=== PATIENT | male | born 1955 | race Caucasian/White ===

== ENCOUNTER 2021-01-26 09:14 | Emergency (ER) | payer MEDICARE, OTHER, SELFPAY ==
--- NOTE | ~2021-01-26 | CT_ITS ---
EXAMINATION: CT brain wo con EXAM DATE: 01/26/2021 12:34 INDICATION: Seizure TECHNIQUE: Spiral CT of the head was performed without contrast. Axial, coronal and sagittal images were reviewed. The dose-length product (DLP) for this examination was 832.33 mGy-cm. The exposure w as tailored according to patient size, and iterative reconstruction (ASIR) was used as additional dos e reduction technique. There is no prior study for comparison. FINDINGS: Large right frontotemporal craniotomy. Large old right middle cerebral artery distribution region of encephalomalacia, prior infarction. Old right basal ganglia lacunar infarction. No obstruct niraj hydrocephalus, acute intracranial hemorrhage, brain mass. There is mild microangiopathy and cereb ral atrophy. Sphenoid, ethmoid sinuses, frontal sinuses and mastoid air cells are well aerated. IMPRESSION: Chronic findings. Reviewed, dictated and finalized at location B. IMPRESSION: Chronic findings.
[2021-01-26 09:12] VITALS: BP 126/98; PULSE 81; RESP 12; TEMP 36.4; O2SAT 94
[2021-01-26 09:17] VITALS: PULSE 78
--- NOTE | 2021-01-26 09:18 | ECG_ITS ---
Measurements Intervals [place] Rate: 74 P: 116 NE: 193 QRS: -19 QRSD: 101 T: 104 QT: 406 QTc: 451 Interpretive Statements ELECTRONIC ATRIAL PACEMAKER LOW QRS VOLTAGE IN PRECORDIAL LEADS ANTEROSEPTAL INFARCT, AGE INDETERMINATE BORDERLINE ST-T WAVE ABNORMALITY- LAT/HIGH LAT LEADS BASELINE ARTIFACT- II, III, AVF, V1, V3-V6 ABNORMAL ECG Electronically Signed On 01-26-2021 13:07:16 CDT by Walter Goodson D.O.
--- NOTE | 2021-01-26 09:24 | ED.GENADULT ---
HPI - General Adult General Chief complaint: Unspecified Stated complaint: Seizure Like Activity Time Seen by Provider: 01/26/21 09:19 Source: patient Mode of arrival: EMS Limitations: no limitations History of Present Illness HPI narrative: 65-year-old with a history of CVA, osteoarthritis, fibromyalgia, BPH was sent from a long-term for possible seizure-like activity. Patient was able to direct the whole history. Patient states that he was in the bed was unable to move his leg started having generalized spasm. Nursing staff at the long-term thought he was having a seizure and was later sent here for evaluation. Patient denied losing any consciousness. Denies any headache. No history of bladder or bowel incontinence. Onset (ago): hour(s) (1) Radiation: non-radiation Pain Consistency: now resolved Relieving factors: none Exacerbating factors: none Associated symptoms: denies other symptoms Related Data Allergies Allergy/AdvReac Type Severity Reaction Status Date / Time amoxicillin AdvReac Hives Verified 01/26/21 09:19 Review of Systems Review of Systems: All systems reviewed & are unremarkable except as noted in HPI and below Constitutional: Constitutional: Reports no additional constitutional complaints Eyes: Eyes: Reports no additional eye complaints ENT: Reports system reviewed and no additional complaints, except as documented Cardiovascular: Cardiovascular: Reports no additional cardiovascular complaints Respiratory: Respiratory: Reports no additional respiratory complaints Gastrointestinal: Gastrointestinal: Reports no additional gastrointestinal complaints Musculoskeletal: Musculoskeletal: Reports no additional musculoskeletal complaints Integumentary/Breasts: Skin/Breast: Reports system reviewed and no additional complaints, except as docu Neurologic: Reports system reviewed and no additional complaints, except as documented Exam Narrative: GENERAL: Well-appearing, well-nourished, and in no acute distress. HEAD: Normocephalic, atraumatic. EYES: PERRLA and EOMI. NECK: Supple. CHEST: Clear to auscultation. No respiratory distress. HEART: Regular rate and rhythm. No murmur heard. Normal peripheral pulses. ABDOMEN: Soft, nontender, nondistended, normal active bowel sounds. EXTREMITIES: Normal range of motion. No edema. SKIN: Warm, dry, no rash. NEURO: Alert and oriented x3. PSYCH: Normal mood and affect. Course Course Emergency Course: Patient was comfortably laying on the stretcher here in the ER for couple hours. He had no further episodes. I did discuss his lab work with him. Also discussed with Dr. Sanchez this time his muscle spasm that appeared to be like seizure activity. Vital Signs Vital signs: Vital Signs Temperature 36.4 C L 01/26/21 09:12 Pulse Rate 81 01/26/21 09:12 Respiratory Rate 12 01/26/21 09:12 Blood Pressure 126/98 H 01/26/21 09:12 Pulse Oximetry 94 01/26/21 09:12 Temperature 36.4 C L 01/26/21 09:12 Pulse Rate 78 01/26/21 09:17 Respiratory Rate 12 01/26/21 09:12 Blood Pressure 126/98 H 01/26/21 09:12 Pulse Oximetry 94 01/26/21 09:12 Medical Decision Making Vital Signs Vital Signs: Vital Signs Temperature 36.4 C L 01/26/21 09:12 Pulse Rate 81 01/26/21 09:12 Respiratory Rate 12 01/26/21 09:12 Blood Pressure 126/98 H 01/26/21 09:12 Pulse Oximetry 94 01/26/21 09:12 Temperature 36.4 C L 01/26/21 09:12 Pulse Rate 78 01/26/21 09:17 Respiratory Rate 12 01/26/21 09:12 Blood Pressure 126/98 H 01/26/21 09:12 Pulse Oximetry 94 01/26/21 09:12 Lab Data Result diagrams: 01/26/21 09:20 01/26/21 09:20 Labs: Lab Results 01/26/21 01/26/21 01/26/21 Range/Units 09:20 09:20 09:20 WBC 6.2 (4.5-10.0) K/mm3 RBC 4.01 L (4.6-6.20) M/mm3 Hgb 12.1 L (14.0-18.0) g/dL Hct 37.4 L (42.0-52.0) % MCV 93.3 (80-100) fl MCH 30.2 (26-34) pg MCHC 32.4 (
[2021-01-26 09:38] LABS: Basophils Percent Auto 0.6 % (0.2-1.2); Eosinophils Absolute Auto 0.3 K/mm3 (0-0.3); Eosinophils Percent Auto 4.3 % (0-4.4); Hematocrit 37.4 % (42.0-52.0); Hemoglobin 12.1 g/dL (14.0-18.0); Immature Granulocyte Absolute 0.02 K/mm3 (0.00-0.031); Immature Granulocyte Percent A 0.3 % (0-0.5); Lymphocytes Absolute Auto 1.83 K/mm3 (0.9-3.2); Lymphocytes Percent Auto 29.4 % (18.3-44.2); Mean Corpuscular HGB Conc 32.4 g/dl (32-36); Mean Corpuscular Hemoglobin 30.2 pg (26-34); Mean Corpuscular Volume 93.3 fl (80-100); Monocytes Absolute Auto 0.5 K/mm3 (0.1-0.6); Monocytes Percent Auto 7.6 % (2.6-8.5); Neutrophils Absolute Auto 3.6 K/mm3 (1.3-6.7); Neutrophils Percent Auto 57.8 % (45.5-73.1); Platelet Count Result 304 k/mm3 (150-375); Red Blood Count 4.01 M/mm3 (4.6-6.20); Red Cell Distribution Width 13.8 % (11.5-14.5); White Blood Count 6.2 K/mm3 (4.5-10.0)
[2021-01-26 09:46] LABS: Alanine Aminotransferase 35 U/L (4-50); Albumin Level 4.5 g/dL (3.5-5.1); Alkaline Phosphatase 64 U/L (38-126); Anion Gap 10 mmol/L (8-16); Aspartate Amino Transferase 35 U/L (17-59); Bilirubin,Total 0.8 mg/dL (0.2-1.3); Blood Urea Nitrogen 17 mg/dL (9-20); Calcium 9.8 mg/dL (8.4-10.2); Carbon Dioxide 29 mmol/L (22-30); Chloride 104 mmol/L (98-107); Estimated CRCL calculation 61 ml/min; Estimated Glomerular Filt Rate > 60; Glucose 110 mg/dL (65-110); Potassium 4.3 mmol/L (3.4-5.0); Sodium 143 mmol/L (137-145)
[2021-01-26 09:55] LABS: Phosphorus 4.4 mg/dL (2.5-4.5)
[2021-01-26 13:05] VITALS: BP 115/88; PULSE 62; RESP 18; O2SAT 98
--- NOTE | 2021-01-26 14:57 | PC.NURSE ---
[facility] Called at this time to give report for patient return, BALBIR Fang
[2021-01-26 15:06] VITALS: BP 108/58; PULSE 68; RESP 18; O2SAT 99
== END 2021-01-26 16:26 ==
PROVIDERS: Physician Assistant; Emergency Provider Family Medicine
DX: M62.838 Other muscle spasm (principal); Z95.0 Presence of cardiac pacemaker; R94.31 Abnormal electrocardiogram [ECG] [EKG]
CPT/HCPCS: 36415; 70450; 80053; 83735; 84100; 85025; 93005; 99284

== ENCOUNTER 2022-07-28 08:33 | Emergency (ER) | payer MEDICARE, OTHER, MEDICAID, SELFPAY ==
[2022-07-28] VITALS (13 sets, daily range): BP systolic 120–148; BP diastolic 81–104; PULSE 60–74; RESP 9–19; TEMP 36.9; O2SAT 94–97
--- NOTE | ~2022-07-28 | XR_ITS ---
EXAMINATION: XR chest 2V DATE: 07/28/2022 09:12 INDICATION: Left shoulder pain TECHNIQUE: AP and lateral views of the chest are obtained. COMPARISON: None available FINDINGS: There is a masslike opacity of the right hilum. There is elevation of the right hemidiaphra gm. No pleural effusion or pneumothorax. There is moderate thoracic spondylosis. A coronary artery st ent is noted. A changes of anterior fusion procedure are noted at the cervicothoracic junction. cardi ac pacemaker of the left chest wall ends with leads in expected locations. IMPRESSION: 1. Masslike opacity of the right hilum with elevation of the right hemidiaphragm which could reflect hilar malignancy. Further evaluation with CT of the chest is recommended. Reviewed, dictated and finalized at location A. IMPRESSION: 1. Masslike opacity of the right hilum with elevation of the right hemidiaphrag m which could reflect hilar malignancy. Further evaluation with CT of the chest is recommended.
--- NOTE | ~2022-07-28 | CT_ITS ---
EXAMINATION: CT diagnostic chest wo con DATE: 07/28/2022 12:19 INDICATION: Hilar mass TECHNIQUE: Computed tomography (CT) of the chest was performed without intravenous contrast. The dose -length product (DLP) was 253.01 mGy-cm. Automated exposure control and iterative reconstruction tech nique were employed. COMPARISON: None FINDINGS: Bronchiectasis and airspace opacities are present in the right lower lobe which account for the chest radiographic findings in question. No hilar mass is seen. There is mild emphysema. There a re scattered 2 to 3 mm nodules of the lungs with an upper lobe predominance. No pleural effusion or p neumothorax. There are circumferential wall thickening of the distal esophagus. The esophagus is patu lous. No pathologically enlarged thoracic lymph nodes are identified. The heart size is normal. Ther e is mild thoracic spondylosis. IMPRESSION: 1. Bronchiectasis and airspace opacities in the right lower lobe accounting for the radiographic find ing in question. Finding may reflect infection/inflammation however underlying malignancy could be ob scured. Follow-up CT in three months is recommended. 2. Scattered 2 to 3 mm nodules of the lungs, likely infectious or inflammatory. 3. Circumferential wall thickening of the distal esophagus which may reflect esophagitis. Reviewed, dictated and finalized at location A. IMPRESSION: 1. Bronchiectasis and airspace opacities in the right lower lobe accounting for the radiographic finding in question. Finding may reflect infection/inflammati on however underlying malignancy could be obscured. Follow-up CT in three month s is recommended. 2. Scattered 2 to 3 mm nodules of the lungs, likely infectious or inflammatory. 3. Circumferential wall thickening of the distal esophagus which may reflect es ophagitis.
--- NOTE | ~2022-07-28 | CT_ITS ---
EXAMINATION: CT abdomen pelvis w con INDICATION: Right-sided abdominal pain TECHNIQUE: Computed tomographic images of the abdomen and pelvis were obtained after the administrati on of 100 cc of Omnipaque 350 intravenous contrast. The dose-length product (DLP) was 744.47 mGy-cm. Automated exposure control and iterative reconstruction technique were employed. COMPARISON: None available FINDINGS: Bronchiectasis and airspace opacities are present in the right lower lobe. There are minima l airspace opacities of the left lower lobe. The heart size is normal. There is elevation of the righ t hemidiaphragm. Punctate calcifications in an otherwise normal spleen likely represent healed granul omatous disease. The liver is diffusely low in attenuation when compared with the spleen, consistent with hepatic steatosis. There is circumferential wall thickening of the distal esophagus. There is al so wall thickening of the stomach and proximal duodenum. A large volume of colonic stool is present. The gallbladder, pancreas, and adrenal glands are normal. Cysts of the kidneys measure up to 13 mm on the left. There is cortical scarring posteriorly in the left kidney. No pathologically enlarged abdo kris or pelvic lymph nodes are identified. There is no free intraperitoneal gas. There is a 3.1 cm f usiform aneurysm of the infrarenal abdominal aorta. IMPRESSION: 1. Wall thickening of the distal esophagus, stomach, and proximal duodenum which may reflect gastriti s/esophagitis. 2. Bronchiectasis and airspace opacities of the right lower lobe, possible infection/inflammation alt jermain underlying malignancy could be obscured. Follow-up CT in three months is recommended. Reviewed, dictated and finalized at location A. IMPRESSION: 1. Wall thickening of the distal esophagus, stomach, and proximal duodenum whic h may reflect gastritis/esophagitis. 2. Bronchiectasis and airspace opacities of the right lower lobe, possible infe ction/inflammation although underlying malignancy could be obscured. Follow-up CT in three months is recommended.
--- NOTE | 2022-07-28 08:37 | ECG_ITS ---
Measurements Intervals [place] Rate: 69 P: 216 SC: 233 QRS: -39 QRSD: 105 T: 123 QT: 402 QTc: 432 Interpretive Statements ELECTRONIC ATRIAL PACEMAKER LEFT AXIS DEVIATION ANTEROSEPTAL INFARCT, AGE INDETERMINATE ST-T WAVE ABNORMALITY IN HIGH LATERAL LEADS- CONSIDER ISCHEMIA BASELINE ARTIFACT- I, II, III, AVL, AVF ABNORMAL ECG COMPARED TO ECG 01/26/2021 09:19:15 LEFT-AXIS DEVIATION NOW PRESENT Electronically Signed On 07-28-2022 16:27:55 CDT by Walter Goodson D.O.
--- NOTE | 2022-07-28 08:53 | ED.CHESTPAIN ---
HPI - Chest Pain General Chief Complaint: Chest Pain Stated Complaint: CP Time Seen by Provider: 07/28/22 08:53 Source: patient and EMS Mode of arrival: EMS Limitations: no limitations History of Present Illness HPI narrative: 67 years old white male [facility] with [facility], vomiting started last night lasted for 1 hour associated with left chest pain and left shoulder pain. Patient came to the emergency room this morning because not feeling well. He denies any fever, chills, chest pain, shortness of breath, coughing or back pain. History of left hemiplegia, chronic left shoulder pain secondary to subluxation secondary to stroke. Patient on Ativan and hydrocodone which he received at 5 AM prior to arrival to the emergency room.. Related Data Allergies Allergy/AdvReac Type Severity Reaction Status Date / Time amoxicillin AdvReac Hives Verified 01/26/21 09:19 Review of Systems Review of Systems: All systems reviewed & are unremarkable except as noted in HPI and below Exam Narrative: General appearance: Well-developed, well-nourished Skin: Normal color Head: Normocephalic, nontraumatic Eyes: Clear conjunctiva ENT: Oropharynx normal, ears normal, nose normal Neck: Supple, nontender Chest and respiratory: Airway patent, no respiratory distress, no accessory muscle use Heart: Regular rate/rhythm Abdomen: Soft, nontender, no organomegaly, quiet bowel sounds Vascular: Normal peripheral pulses, normal capillary refill. 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 Was notified about the CAT scan findings and the possibility of pneumonia versus malignancy. Date: 07/28/22 Time: 13:36 Vital Signs Vital signs: Vital Signs Temperature 36.9 C 07/28/22 08:33 Pulse Rate 62 07/28/22 08:33 Respiratory Rate 18 07/28/22 08:33 Blood Pressure 141/104 H 07/28/22 08:33 Pulse Oximetry 97 07/28/22 08:33 Oxygen Delivery Room Air 07/28/22 08:33 Temperature 36.9 C 07/28/22 08:33 Pulse Rate 60 07/28/22 11:00 Respiratory Rate 15 07/28/22 11:00 Blood Pressure 141/84 H 07/28/22 11:00 Pulse Oximetry 95 07/28/22 11:00 Oxygen Delivery Room Air 07/28/22 08:33 MDM - Chest Pain MDM Narrative Medical decision making narrative: [facility] from [facility] complaining of left chest pain left shoulder pain last night after vomiting. Resolved in 1 hour. Currently patient is asymptomatic except chronic left shoulder pain on hydrocodone, chronic left lower extremity pain. Physical examination was significant for left hemiplegia otherwise within normal limit. Differential diagnoses include coronary artery disease, stress related symptoms, pancreatitis, esophagitis. Work-up include: Troponin, coag, EKG, chest x-ray, CBC, CMP, lipase, CT abdomen and pelvis with IV contrast. Work-up showed normal level of troponin less than 0.012 twice. Otherwise blood work-up showed no acute abnormalities. Chest x-ray showed masslike opacity of the right hilum which could reflect hilar malignancy. CT chest without contrast, CT scan of the abdomen and pelvis with IV contrast showed bronchiectasis and airspace opacity in the right lower lobe questionable infection/inflammation, malignancy could be obscured follow-up in [address] scan of the chest more other finding consistent with esophagitis/gastritis. Patient received lidocaine patch for the left hip area, aspirin, Levaquin 750 mg for possible pneumonia in the ED prior to dis
[2022-07-28] MEDS: ASPIRIN 81 MG CHEWABLE TABLET 324 MG PO (09:18)
[2022-07-28 09:26] LABS: Basophils Absolute Auto 0.1 K/mm3 (0.0-0.1); Basophils Percent Auto 0.8 % (0.2-1.2); Eosinophils Absolute Auto 0.5 K/mm3 (0-0.3); Hematocrit 38.3 % (42.0-52.0); Hemoglobin 12.6 g/dL (14.0-18.0); Immature Granulocyte Absolute 0.02 K/mm3 (0.00-0.031); Immature Granulocyte Percent A 0.2 % (0-0.5); Lymphocytes Absolute Auto 2.88 K/mm3 (0.9-3.2); Lymphocytes Percent Auto 28.1 % (18.3-44.2); Mean Corpuscular HGB Conc 32.9 g/dl (32-36); Mean Corpuscular Hemoglobin 31.1 pg (26-34); Mean Corpuscular Volume 94.6 fl (80-100); Mean Platelet Volume 10.2 fl (7.4-10.4); Monocytes Absolute Auto 0.8 K/mm3 (0.1-0.6); Monocytes Percent Auto 7.8 % (2.6-8.5); Neutrophils Percent Auto 58.1 % (45.5-73.1); Platelet Count Result 303 k/mm3 (150-375); Red Blood Count 4.05 M/mm3 (4.6-6.20); Red Cell Distribution Width 12.6 % (11.5-14.5); White Blood Count 10.2 K/mm3 (4.5-10.0)
[2022-07-28 09:39] LABS: Alanine Aminotransferase 23 U/L (6-50); Albumin Level 4.3 g/dL (3.5-5.1); Alkaline Phosphatase 73 U/L (38-126); Anion Gap 8 mmol/L (8-16); Aspartate Amino Transferase 29 U/L (17-59); Bilirubin,Total 0.9 mg/dL (0.2-1.3); Blood Urea Nitrogen 14 mg/dL (9-20); Calcium 9.2 mg/dL (8.4-10.2); Carbon Dioxide 29 mmol/L (22-30); Chloride 102 mmol/L (98-107); Estimated Glomerular Filt Rate > 60; Glucose 99 mg/dL (65-110); Lipase 24 U/L (23-300); Potassium 4.5 mmol/L (3.4-5.0); Sodium 139 mmol/L (137-145)
[2022-07-28 09:41] LABS: INR 1.7; Prothrombin Time 19.5 Seconds (11.1-14.7)
[2022-07-28 09:42] LABS: Partial Thromboplastin Time 36.2 SECONDS (22.3-36.8)
[2022-07-28 09:49] LABS: Troponin I < 0.012 ng/mL (0.000-0.034)
[2022-07-28 09:52] LABS: D Dimer 0.42 ug/mL (<0.48)
[2022-07-28] MEDS: LIDOCAINE 5% PATCH 1 PATCH (10:36)
[2022-07-28 12:21] LABS: Troponin I < 0.012 ng/mL (0.000-0.034)
[2022-07-28] MEDS: levoFLOXacin 750 MG TABLET PO (13:53)
--- NOTE | 2022-07-28 14:16 | PC.NURSE ---
[facility] called and report given to Latonya.
[2022-07-28] MEDS: MORPHINE SULFATE (*CRX) 4 MG/ML INJ IV PUSH (15:11)
[2022-07-28] MEDS: ONDANSETRON INJ 4 MG/2 ML VIAL IV PUSH (15:12)
== END 2022-07-28 15:40 ==
PROVIDERS: Emergency Provider Emergency Medicine
DX: K29.70 Gastritis, unspecified, without bleeding (principal); J47.9 Bronchiectasis, uncomplicated; R91.8 Other nonspecific abnormal finding of lung field
CPT/HCPCS: 36415; 71046; 71250; 74177; 80053; 83690; 84484; 85025; 85380; 85610; 85730; 93005; 96374; 96375; 99284; A9270; J2270; J2405; Q9967

== ENCOUNTER 2023-06-11 19:38 | Inpatient (IN) | payer MEDICARE, MEDICAID, SELFPAY ==
--- NOTE | ~2023-06-11 | CT_ITS ---
EXAMINATION: CT brain wo con INDICATION: Altered mental status COMPARISON: 01/26/2021 TECHNIQUE: Standard unenhanced head CT. The dose-length product (DLP) was 1210.67 mGy-cm. The mA was adjusted according to patient size. Iterative reconstruction technique was employed. FINDINGS: No acute intraparenchymal hemorrhage. No evidence of mass lesion. No evidence of acute infa rction. There are areas of chronic encephalomalacia in the right middle cerebral artery distribution. There is an old lacunar infarct of the right basal ganglia. There is mild periventricular and subcor tical hypodensity probably related to small vessel ischemic disease. There is mild prominence of the sulci and ventricles related to cerebral atrophy. Intracranial calcified cerebral atherosclerosis is noted. No extra-axial collections. No mass effect or midline shift. There is a right frontotemporal c raniotomy defect. The orbits and soft tissues are unremarkable. The visualized sinuses and mastoid ai r cells are well aerated. IMPRESSION: 1. Areas of prior infarction without acute intracranial abnormality. 2. Age related findings. Reviewed, dictated and finalized at location B. NA CARRIER
--- NOTE | ~2023-06-11 | XR_ITS ---
MODIFIED ESOPHAGRAM HISTORY: Aspiration pneumonia. Stroke. TECHNIQUE: Modified barium esophagram was performed on 06/12/2023. Dr. Mccray administered fluoroscopy an d performed the exam with speech pathologist. Patient was seated for lateral fluoroscopic imaging fo r ingestion of thin liquids, pudding, solids and quantified amounts, followed by thin liquids in unco ntrolled amounts. This was recorded on tape. A single fluoroscopic spot image was also recorded. The DAP for this procedure was 0.853 Gycm2. The amount of fluoroscopy time used during this procedure was 2.1 minutes. FINDINGS: Oral stage: Adequate function. Pharyngeal stage: There is reduced laryngeal elevation and adduction. Reduced tongue base retraction and pharyngeal squeeze. There is both vallecular and piriform sinus residue. There was laryngeal pene tration and aspiration with thin liquids and pudding consistencies. Cervical/esophageal stage: Adequate function. C5-C7 anterior spinal fusion with plate and screw fixation. IMPRESSION: Pharyngeal dysphagia with laryngeal penetration and aspiration with thin liquids and pudd ing consistencies. Please correlate with speech pathologist findings and specific feeding recommenda tions. Reviewed, dictated and finalized at location A. MANAGER IMPRESSION: Pharyngeal dysphagia with laryngeal penetration and aspiration with thin liquids and pudding consistencies. Please correlate with speech patholog ist findings and specific feeding recommendations.
--- NOTE | ~2023-06-11 | XR_ITS ---
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 RESULT: Lines, tubes, and devices: ACDF hardware. Left chest pacer with intact leads. Coronary stent/stents. Lungs and pleura: Right hemidiaphragm elevation. Subsegmental bilateral dependent airspace disease. Cardiomediastinal silhouette: Stable. Other: No acute osseous or upper abdominal finding. IMPRESSION: Subsegmental bibasilar atelectasis or pneumonia. Reviewed, dictated and finalized at location K. R ASSEMBLER
[2023-06-11 19:37] VITALS: BP 125/79; PULSE 84; RESP 21; TEMP 36.6; O2SAT 95
--- NOTE | 2023-06-11 19:46 | ECG_ITS ---
Measurements Intervals [place] Rate: 80 P: 107 RI: 228 QRS: -61 QRSD: 163 T: 73 QT: 432 QTc: 498 Interpretive Statements ELECTRONIC ATRIAL PACEMAKER RIGHT BUNDLE BRANCH BLOCK [120+ ms QRS DURATION, UPRIGHT V1, 40+ ms S IN I/aVL/V4/V5/V6] LEFT ANTERIOR FASCICULAR BLOCK [QRS AXIS <= -45, QR IN I, RS IN II] ANTEROSEPTAL MYOCARDIAL INFARCTION , OF INDETERMINATE AGE [40+ ms Q WAVE IN V1-V4] COMPARED TO ECG 07/28/2022 08:36:43 RIGHT BUNDLE-BRANCH BLOCK NOW PRESENT Electronically Signed On 06-12-2023 15:06:14 CONVEYOR WEIGHER OPERATOR by Lola Burgos M.D.
[2023-06-11 19:52] VITALS: BP 116/84; PULSE 66; RESP 15; O2SAT 95
[2023-06-11 20:02] LABS: Basophils Absolute Auto 0.1 K/mm3 (0.0-0.1); Basophils Percent Auto 0.6 % (0.2-1.2); Eosinophils Absolute Auto 0.2 K/mm3 (0-0.3); Eosinophils Percent Auto 1.7 % (0-4.4); Hematocrit 36.3 % (42.0-52.0); Hemoglobin 11.5 g/dL (14.0-18.0); Immature Granulocyte Absolute 0.02 K/mm3 (0.00-0.031); Immature Granulocyte Percent A 0.2 % (0-0.5); Lymphocytes Absolute Auto 1.64 K/mm3 (0.9-3.2); Lymphocytes Percent Auto 18.5 % (18.3-44.2); Mean Corpuscular HGB Conc 31.7 g/dl (32-36); Mean Corpuscular Hemoglobin 30.1 pg (26-34); Mean Platelet Volume 10.2 fl (7.4-10.4); Monocytes Absolute Auto 0.4 K/mm3 (0.1-0.6); Monocytes Percent Auto 4.8 % (2.6-8.5); Neutrophils Absolute Auto 6.6 K/mm3 (1.3-6.7); Neutrophils Percent Auto 74.2 % (45.5-73.1); Platelet Count Result 250 k/mm3 (150-375); Red Blood Count 3.82 M/mm3 (4.6-6.20); Red Cell Distribution Width 12.5 % (11.5-14.5); White Blood Count 8.9 K/mm3 (4.5-10.0)
[2023-06-11 20:13] LABS: Alanine Aminotransferase 17 U/L (6-50); Alkaline Phosphatase 70 U/L (38-126); Anion Gap 6 mmol/L (8-16); Aspartate Amino Transferase 35 U/L (17-59); Bilirubin,Total 0.9 mg/dL (0.2-1.3); Blood Urea Nitrogen 21 mg/dL (9-20); Calcium 9.1 mg/dL (8.4-10.2); Carbon Dioxide 27 mmol/L (22-30); Chloride 107 mmol/L (98-107); Estimated CRCL calculation 59 ml/min; Estimated Glomerular Filt Rate > 60; Glucose 125 mg/dL (65-110); Lactic Acid Reflex 1.5 mmol/L (0.7-2.0); Potassium 4.2 mmol/L (3.4-5.0); Sodium 140 mmol/L (137-145)
[2023-06-11 20:16] LABS: INR 1.2; Prothrombin Time 15.5 Seconds (11.1-14.7)
[2023-06-11 20:17] LABS: Partial Thromboplastin Time 38.2 SECONDS (22.3-36.8)
[2023-06-11 20:25] VITALS: O2SAT 95
[2023-06-11 20:42] LABS: Influenza A QL RT-PCR Negative (Negative); Influenza B QL RT-PCR Negative (Negative); RSV RNA, RT-PCR Negative (Negative); SARS-CoV-2 RNA PCR Negative (Negative)
[2023-06-11 21:36] VITALS: PULSE 78
[2023-06-11 22:52] VITALS: BP 111/70; PULSE 63; RESP 17; O2SAT 95
--- NOTE | 2023-06-11 23:22 | ED.GENADULT ---
HPI - General Adult General Chief complaint: Shortness of Breath/Dyspnea Stated complaint: aloc, resp distress Time Seen by Provider: 06/11/23 21:28 History of Present Illness HPI narrative: patient is 68-year-old gentleman who presents emergency department with chief complaint of cough and abnormal chest x-ray the patient is from a local nursing facility and is normally alert oriented x4 the patient has been very slow to respond and has been less oriented than normal. Patient does have prior history of stroke and has had issues with aspiration pneumonia in the past. The patient reports that he has had a cough and has felt short of breath. The patient had an outpatient x-ray done that was concerning for pneumonia. Related Data Allergies Allergy/AdvReac Type Severity Reaction Status Date / Time amoxicillin AdvReac Hives Verified 01/26/21 09:19 Review of Systems Review of Systems: A 10 system review of systems was completed on the patient and is negative except for what is stated in the HPI. Nursing and ancillary documentation was reviewed. Exam Narrative: GENERAL: Well-appearing, well-nourished, and in no acute distress. HEAD: Normocephalic, atraumatic. EYES: PERRLA and EOMI. ENT: Nares clear, no rhinorrhea or epistaxis. Mucous membranes dry NECK: Supple. CHEST: Clear to auscultation. No respiratory distress. HEART: Regular rate and rhythm. No murmur heard. Normal peripheral pulses. ABDOMEN: Soft, nontender, nondistended, normal active bowel sounds. EXTREMITIES: Normal range of motion. No edema. SKIN: Warm, dry, no rash. NEURO: No focal deficits. Alert and oriented x2. slow to respond PSYCH: Normal mood and affect. Course Vital Signs Vital signs: Vital Signs Temperature 36.6 C 06/11/23 19:37 Pulse Rate 84 06/11/23 19:37 Respiratory Rate 21 H 06/11/23 19:37 Blood Pressure 125/79 06/11/23 19:37 Pulse Oximetry 95 06/11/23 19:37 Oxygen Delivery Room Air 06/11/23 19:37 Temperature 36.6 C 06/11/23 19:37 Pulse Rate 63 06/11/23 22:52 Respiratory Rate 17 06/11/23 22:52 Blood Pressure 111/70 06/11/23 22:52 Pulse Oximetry 95 06/11/23 22:52 Oxygen Delivery Room Air 06/11/23 20:25 Medical Decision Making MDM Narrative Medical decision making narrative: differential diagnosis includes aspiration pneumonia, community-acquired pneumonia, viral syndrome, COVID flu RSV laboratory studies were obtained on the patient showed normal white blood cell count 8.9 electrolytes were within normal limits lactic acid is 1.5 COVID flu and RSV were negative chest x-ray shows subsegmental bibasilar atelectasis or pneumonia due to the patient being at a skilled facility and also patient has had prior history of aspiration pneumonia patient was covered with cefepime vancomycin and azithromycin was added this was in discussion with the hospitalist on-call patient was accepted to the hospitalist service. Vital Signs Vital Signs: Vital Signs Temperature 36.6 C 06/11/23 19:37 Pulse Rate 84 06/11/23 19:37 Respiratory Rate 21 H 06/11/23 19:37 Blood Pressure 125/79 06/11/23 19:37 Pulse Oximetry 95 06/11/23 19:37 Oxygen Delivery Room Air 06/11/23 19:37 Temperature 36.6 C 06/11/23 19:37 Pulse Rate 63 06/11/23 22:52 Respiratory Rate 17 06/11/23 22:52 Blood Pressure 111/70 06/11/23 22:52 Pulse Oximetry 95 06/11/23 22:52 Oxygen Delivery Room Air 06/11/23 20:25 Lab Data 06/11/23 19:49 06/11/23 19:49 Labs: Lab Results 06/11/23 06/11/23 Range/Units 19:49 19:52 WBC 8.9 (4.5-10.0) K/mm3 RBC 3.82 L (4.6-6.20) M/mm3 Hgb 11.5 L (14.0-18.0) g/dL Hct 36.3 L (42.0-52.0) % MCV 95.0 (80-100) fl MCH 30.1 (26-34) pg MCHC 31.7 L (32-36) g/dl RDW 12.5 (11.5-14.5) % Plt Count 250 (150-375) k/mm3 MPV 10.2 (7.4-10.4) fl Immature Gran % (Auto) 0.2 (0-0.5) % Neut % (
[2023-06-12] VITALS (17 sets, daily range): BP systolic 106–142; BP diastolic 57–86; PULSE 59–71; RESP 16–18; TEMP 36.4–36.8; O2SAT 91–98; BMI 17.2
[2023-06-12] MEDS: ACETAMINOPHEN 325 MG TABLET 650 MG PO (00:13)
[2023-06-12] MEDS: CEFEPIME 2 GM/NS 50 ML 2 GM/50 ML BAG IVPB ×2 (00:14→09:43)
--- NOTE | 2023-06-12 00:51 | ADMGEN ---
This patient, Wilmar De Souza, was admitted to 2 Medical Room 257-01. Patient/family oriented to hospital policies and general routines including ID bracelet, bed and alarms, visiting hours, pain management, procedures, bathroom and other care routines, personal items, smoking policy, room service/diet, and visiting hours. Information on how to activate the Rapid Response Team has been discussed. Patient/Family are encouraged to report perceived risks to care and to ask questions if they do not understand what they are told or what they should do.
[2023-06-12] MEDS: VANCOMYCIN 1,500 MG/NS 500 ML 1,500 MG/500 ML BAG 250 MG IVPB (01:04)
[2023-06-12 01:27] LABS: MRSA (PCR) NOT DETECTED (NOT DETECTE)
[2023-06-12] MEDS: IPRATROPIUM 0.5 MG/ALBUTEROL SULFATE 2.5 MG AMPUL.NEB 3 ML INHALATION ×4 (02:35→20:14)
[2023-06-12] MEDS: SODIUM CHLORIDE 0.9% IV 1,000 ML 125 ML IV CONT ×2 (05:22→18:09)
[2023-06-12] MEDS: AZITHROMYCIN 500 MG/NS 250 ML 500 MG/250 ML BAG 250 MG IVPB (05:23)
[2023-06-12 05:40] LABS: Basophils Absolute Auto 0.1 K/mm3 (0.0-0.1); Basophils Percent Auto 0.6 % (0.2-1.2); Eosinophils Absolute Auto 0.3 K/mm3 (0-0.3); Hematocrit 33.1 % (42.0-52.0); Hemoglobin 10.6 g/dL (14.0-18.0); Immature Granulocyte Absolute 0.03 K/mm3 (0.00-0.031); Immature Granulocyte Percent A 0.3 % (0-0.5); Lymphocytes Absolute Auto 2.05 K/mm3 (0.9-3.2); Lymphocytes Percent Auto 23.6 % (18.3-44.2); Mean Corpuscular Hemoglobin 30.5 pg (26-34); Mean Corpuscular Volume 95.4 fl (80-100); Mean Platelet Volume 10.2 fl (7.4-10.4); Monocytes Absolute Auto 0.5 K/mm3 (0.1-0.6); Monocytes Percent Auto 6.2 % (2.6-8.5); Neutrophils Absolute Auto 5.8 K/mm3 (1.3-6.7); Neutrophils Percent Auto 66.3 % (45.5-73.1); Platelet Count Result 230 k/mm3 (150-375); Red Blood Count 3.47 M/mm3 (4.6-6.20); Red Cell Distribution Width 12.4 % (11.5-14.5); White Blood Count 8.7 K/mm3 (4.5-10.0)
[2023-06-12 05:53] LABS: Anion Gap 2 mmol/L (8-16); Blood Urea Nitrogen 19 mg/dL (9-20); Carbon Dioxide 29 mmol/L (22-30); Chloride 109 mmol/L (98-107); Estimated CRCL calculation 61 ml/min; Estimated Glomerular Filt Rate > 60; Glucose 104 mg/dL (65-110); Potassium 4.1 mmol/L (3.4-5.0); Sodium 140 mmol/L (137-145)
[2023-06-12] MEDS: busPIRone HCL 2.5 MG TABLET PO (09:03)
[2023-06-12] MEDS: levETIRAcetam 500 MG TABLET PO (09:04)
[2023-06-12] MEDS: METOPROLOL SUCCINATE EXT REL 25 MG TABCR PO (09:04)
[2023-06-12] MEDS: MULTIVITAMINS THERAPEUTIC TAB (*BKC) 1 TABLET PO (09:05)
[2023-06-12] MEDS: PANTOPRAZOLE SOD SESQUIHYDRATE 20 MG TAB PO (09:06)
[2023-06-12] MEDS: SERTRALINE HCL 25 MG TABLET PO (09:06)
[2023-06-12] MEDS: guaiFENesin 12 HR 600 MG TABCR PO (09:07)
[2023-06-12] MEDS: DULoxetine HCL 60 MG CAPSULE.DR PO (09:07)
[2023-06-12] MEDS: lamoTRIgine 100 MG TABLET PO (09:07)
[2023-06-12] MEDS: oxyCODONE HCL (*CRX) 5 MG TAB IR PO ×2 (09:07→22:28)
[2023-06-12] MEDS: busPIRone HCL 5 MG TABLET PO (09:07)
[2023-06-12] MEDS: GABAPENTIN 300 MG CAPSULE PO (09:08)
[2023-06-12] MEDS: LIDOCAINE 5% PATCH 1 PATCH TOPICAL (09:08)
[2023-06-12] MEDS: TRIAMCINOLONE ACET 0.1% CREAM 15 GM TUBE 1 APPLIC TOPICAL ×2 (10:49→18:01)
[2023-06-12] MEDS: HYDROCORTISONE 1% 30 GM CREAM 1 APPLIC TOPICAL ×2 (10:49→18:00)
[2023-06-12] MEDS: DICLOFENAC SODIUM 1% 100 GM GEL (*BKC) 1 APPLIC TOPICAL ×2 (10:53→18:00)
[2023-06-12 11:06] LABS: Appearance Urine Clear (Clear); Bacteria Urine None Seen /hpf; Bilirubin Urine Negative (Negative); Blood Urine 1+ (Negative); Color Urine Yellow (Yellow); Glucose Urine UA Negative (Negative); Ketones Urine Negative (Negative); Leukocyte Esterase Ur Negative LEU/UL (Negative); Need Manual Microscopic Reviewed; Nitrate Urine Negative (Negative); Protein Urine Negative (Negative); RBC Urine 21-50 /hpf (0-2); Squamous Epithelial Cell Urine None seen /hpf (Few); Urobilinogen Urine 0.2 mg/dL (<2.0); WBC Urine 0-5 /hpf
[2023-06-12 11:07] LABS: Add Urine Microscopic? YES
--- NOTE | 2023-06-12 12:02 | PCSTNOTE ---
Please refer to the Modified Barium Swallow Evaluation in the EMR. Pt was seen for an MBS versus bedside swallow due to pt's history of CVA and aspiration pneumonia. The pt was seated for a lateral view and presented with 5ml thin liquid via a spoon & tsp amounts of pudding, also via a spoon. The oral stages were essentially within normal limits; the pt did abnormally hold the pudding bolus requiring verbal cues to swallow upon which no oral leakage or pocketing was exhibited;? Pharyngeal stage symptoms:? - reduced laryngeal elevation as evidenced by laryngeal penetration during the swallow of thin liquids and pyriform sinus residue (max) with pudding;? - reduced tongue base retraction/pressure as evidenced by vallecular residue but that was considered mild;? - reduced laryngeal closure/adduction as evidenced by aspiration during the swallow of thin liquids. Laryngeal penetration and aspiration also occurred after the swallow of pudding as residual from the pyriform sinuses and valleculae spilled into the laryngeal vestibule/airway. Pt did not make any effort to cough/eject contents.? The pt did not consistently follow commands which is why study modifications were not attempted (follow thru would be doubtful & potentially risky for aspiration). Impression: severe dysphagia Recommendation: NPO; trial of dysphagia therapy can be attempted but it is doubtful therapy will cause an immediate improvement in order to begin oral intake during this acute admission. It is also questionable if pt will adequately participate and effectively perform exercises.? [ End ]
[2023-06-12 12:14] LABS: MRSA (PCR) NOT DETECTED (NOT DETECTE)
--- NOTE | 2023-06-12 16:21 | PM.IMHP ---
H&P: HPI History of Present Illness Date/Time: 06/12/23 16:21 Chief Complaint: AMS/SOB Patient was a 68-year-old male who presented to the emergency department via EMS from SNF. Per ED notes patient is normally alert and oriented x4 however local shelter stated patient had become altered mental with complaints cough. Patient does have a past medical history of CVA with left-sided deficits dysphagia. SNF also reported previous history of aspiration pneumonia. Patient also has past medical history of seizures, hypertension, constipation, and anxiety. Initial laboratory findings were unremarkable WBC within normal limits however chest x-ray did show atelectasis versus pneumonia. Patient was admitted to medical-surgical unit for further evaluation and treatment of aspiration pneumonia remain NPO and underwent. modified barium swallow. Upon assessment patient was alert and oriented and responding to questions appropriately for did have moments of intermittent confusion and short-term memory. Review of Systems Review of Systems: All systems reviewed & are unremarkable except as noted in HPI and below PMFSH Past Medical History Medical History (Updated 06/12/23 @ 16:29 by Nasreen Schneider APRN) CVA (cerebral vascular accident) Social History Social History Smoking packs per day: 1 Smoking cigarettes per day: 20.0 Years smoked: 30 Smoking pack-years: 30.00 Smoking status: Former smoker Tobacco type: cigarettes Second hand tobacco smoke exposure: Yes Alcohol intake: former Substance use: never Substance use type: does not use Spiritual care concerns: No Meds Home Medications and Allergies Home Medications Medication Instructions Recorded Confirmed Type Adults Multivitamin 1 tablet PO DAILY 06/12/23 06/12/23 History Mucinex 600 mg PO BID 06/12/23 06/12/23 History acetaminophen 500 mg PO QID PRN Pain 06/12/23 06/12/23 History aripiprazole 10 mg tablet 10 mg PO HS 06/12/23 06/12/23 History atorvastatin 80 mg tablet 80 mg PO HS 06/12/23 06/12/23 History buspirone 7.5 mg tablet 7.5 mg PO TID 06/12/23 06/12/23 History diclofenac sodium 1 % topical gel 1 ea topical BID PRN Pain 06/12/23 06/12/23 History (Voltaren Arthritis Pain) docusate sodium 100 mg capsule 100 mg PO BID 06/12/23 06/12/23 History (Colace) duloxetine 60 mg capsule,delayed 60 mg PO DAILY 06/12/23 06/12/23 History release gabapentin 300 mg capsule 300 mg PO TID 06/12/23 06/12/23 History hydrocortisone 1 % topical cream 1 applic topical BID 06/12/23 06/12/23 History lamotrigine 100 mg tablet 100 mg PO DAILY 06/12/23 06/12/23 History (Lamictal) levetiracetam 500 mg tablet 500 mg PO BID 06/12/23 06/12/23 History (Keppra) lidocaine 5 % topical patch 1 patch topical DAILY 06/12/23 06/12/23 History loperamide 2 mg tablet 2 mg PO Q4H PRN diarhea 06/12/23 06/12/23 History lorazepam 0.5 mg tablet 0.5 mg PO TID 06/12/23 06/12/23 History metoprolol succinate 25 mg PO DAILY 06/12/23 06/12/23 History ondansetron HCl 4 mg tablet 4 mg PO Q8H PRN n/v 06/12/23 06/12/23 History oxycodone 5 mg tablet 5 mg PO Q6H 06/12/23 06/12/23 History pantoprazole 40 mg tablet,delayed 20 mg PO QAM 06/12/23 06/12/23 History release (Protonix) polyethylene glycol 3350 1 caplet PO DAILY 06/12/23 06/12/23 History rivaroxaban 20 mg tablet (Xarelto) 20 mg PO QPM 06/12/23 06/12/23 History senna 1 tablet PO BID PRN Constipation 06/12/23 06/12/23 History sertraline 1 tablet PO DAILY 06/12/23 06/12/23 History simethicone 1 cap PO TID PRN gas 06/12/23 06/12/23 History tamsulosin 0.4 mg capsule 0.4 mg PO HS 06/12/23 06/12/23 History trazodone 50 mg tablet 50 mg PO HS 06/12/23 06/12/23 History triamcinolone acetonide 0.1 % 1 applic topical BID 06/12/23 06/12/23 History topical cream Allergies Allergy/AdvReac Type Severity Reaction Status Date / Time amoxicillin AdvReac Hives Verified
[2023-06-12] MEDS: levETIRAcetam 500MG/NACL 100ML 500 MG/100 ML BAG 400 MG IVPB (20:34)
[2023-06-12] MEDS: cefTRIAXone 2 GM/NS 100 ML 2 GM/100 ML BAG IVPB (20:34)
[2023-06-12] MEDS: OLANZapine DISPERTAB 5 MG PO ×2 (21:20→22:52)
[2023-06-12] MEDS: diphenhydrAMINE HCl INJ 50 MG/ML VIAL 25 MG IV PUSH (23:45)
[2023-06-13] VITALS (16 sets, daily range): BP systolic 116–133; BP diastolic 76–85; PULSE 59–70; RESP 16–23; TEMP 36.4–37.4; O2SAT 94–99
--- NOTE | 2023-06-13 02:21 | PCRCNOTE ---
0200 tx not given due to pt sleeping. Pt had been irritable throughout the evening and finally fell asleep. RT and nurse discussed this together. Pt will receive his next tx at 0800.
[2023-06-13] MEDS: SODIUM CHLORIDE 0.9% IV 1,000 ML 125 ML IV CONT ×2 (03:49→19:22)
[2023-06-13] MEDS: AZITHROMYCIN 500 MG/NS 250 ML 500 MG/250 ML BAG 250 MG IVPB (04:03)
[2023-06-13 06:21] LABS: Hematocrit 30.3 % (42.0-52.0); Hemoglobin 9.8 g/dL (14.0-18.0); Mean Corpuscular HGB Conc 32.3 g/dl (32-36); Mean Corpuscular Hemoglobin 29.9 pg (26-34); Mean Corpuscular Volume 92.4 fl (80-100); Mean Platelet Volume 10.6 fl (7.4-10.4); Platelet Count Result 231 k/mm3 (150-375); Red Blood Count 3.28 M/mm3 (4.6-6.20); Red Cell Distribution Width 12.4 % (11.5-14.5); White Blood Count 7.4 K/mm3 (4.5-10.0)
[2023-06-13 06:37] LABS: Alanine Aminotransferase 12 U/L (6-50); Albumin Level 3.2 g/dL (3.5-5.1); Alkaline Phosphatase 61 U/L (38-126); Anion Gap 7 mmol/L (8-16); Aspartate Amino Transferase 30 U/L (17-59); Bilirubin,Total 0.7 mg/dL (0.2-1.3); Blood Urea Nitrogen 12 mg/dL (9-20); Calcium 8.6 mg/dL (8.4-10.2); Carbon Dioxide 23 mmol/L (22-30); Chloride 110 mmol/L (98-107); Estimated CRCL calculation 69 ml/min; Estimated Glomerular Filt Rate > 60; Glucose 74 mg/dL (65-110); Potassium 3.3 mmol/L (3.4-5.0); Sodium 140 mmol/L (137-145)
[2023-06-13] MEDS: IPRATROPIUM 0.5 MG/ALBUTEROL SULFATE 2.5 MG AMPUL.NEB 3 ML INHALATION ×3 (08:17→20:42)
[2023-06-13] MEDS: POTASSIUM CHLORIDE INJ 40 MEQ in SODIUM CHLORIDE 0.9% IV 500 ML 130 MEQ IVPB (08:41)
[2023-06-13] MEDS: levETIRAcetam 500MG/NACL 100ML 500 MG/100 ML BAG 400 MG IVPB ×2 (08:57→21:02)
--- NOTE | 2023-06-13 10:53 | PM.IMPN ---
Progress Note: A&P Assessment and Plan (1) Pneumonia: Code(s): J18.9 - Pneumonia, unspecified organism Status: Acute (2) Dysphagia: Code(s): R13.10 - Dysphagia, unspecified Status: Acute (3) Dementia: Code(s): F03.90 - Unspecified dementia, unspecified severity, without behavioral disturbance, psychotic disturbance, mood disturbance, and anxiety Status: Acute Plan Aspiration PNA -WBC WNL -de-escalated ABX therapy to ceftriaxone MRSA nares negative -Previous HX CVA/dysphagia -NPO Modified barium failed silent aspirating -GI consulted for peg tube placement -Peg tube placement 06/13 -Continue with ST inpatient and at SNF -CBC/CMP daily Dysphagia -Failed barium swallow -GI consulted for Peg tube placement 06/13 -NPO CVA HX -LT sided deficit -PT/OT pending to return to SNF Seizures -Reusmed Keppra IV until pef tube placed Dementia -resumed medications per tube once placed constipation -Resumed home medications Code status: Full code per patient DVT prophylaxis: Xarelto Stress ulcer prophylaxis: Protonix 40 daily PT/OT notes: PT/OT pending Disposition: Will return to SNF after peg tube placement and tolerating feedings -Patient's previous records reviewed on admission -ER notes reviewed in detail on admission -discussed all findings and current treatment plan with patient/Family/POA -Consultations reviewed for recommendations -Patient's disposition for safe discharge discussed with telephonic nurse case manager Dictation performed by [employer] direct speech recognition software, therefore finance manager variants and typographical errors may occur. Time Spent With Patient Time with patient: 15 - 25 minutes Subjective Date/time seen: 06/13/23 10:53 Interval history: Chief Complaint: AMS/SOB Patient was a 68-year-old male who presented to the emergency department via EMS from [facility].? Per ED notes patient is normally alert and oriented x4 however local jail stated patient had become altered mental with complaints cough.? Patient does have a past medical history of CVA with left-sided deficits dysphagia.? SNF also reported previous history of aspiration pneumonia.? Patient also has past medical history of seizures, hypertension, constipation, and anxiety.? Initial laboratory findings were unremarkable WBC within normal limits however chest x-ray did show atelectasis versus pneumonia.? Patient was admitted to medical-surgical unit for further evaluation and treatment of aspiration pneumonia remain NPO and underwent.? modified barium swallow.? Upon assessment patient was alert and oriented and responding to questions appropriately for did have moments of intermittent confusion and short-term memory. 06/13: Patient scheduled for peg tube placement. Otherwise no other acute distress, WBC WNL will de-escalate IV ABX. Patient to return to SNF once tolerating tube feedings will need continued ST at discharge. Review of Systems Review of Systems: All systems reviewed & are unremarkable except as noted in HPI and below Exam Narrative: Physical Exam: - GENERAL: Alert and oriented x 3. Intermittent confusion and memory loss, cachectic - EYES: EOMI. No scleral icterus. PERRLA. - HENT: Moist mucous membranes. No cervical lymphadenopathy. - LUNGS: Clear to auscultation bilaterally. No accessory muscle use. - CARDIOVASCULAR: Regular rate and rhythm. No murmur. No JVD. S1-S2 - ABDOMEN: Soft, non-tender and non-distended. No palpable masses. - EXTREMITIES: No edema. Non-tender -SKIN: No rashes or lesions. Skin warm, dry. - NEUROLOGIC: LT side deficit. CN II-XII grossly intact - PSYCHIATRIC: Anxious. Poor judgement and insight. No visual or auditory hallucinations. No suicidal or homicidal ideation. Objective Data Vital Signs Vital Signs: Vital Signs - 24 hr 06/12/23 11:20 06/12/23 13:20 06/12/23 13:29 Temperature Pulse Rate 62 60 Respiratory
--- NOTE | 2023-06-13 11:55 | PC.NURSE ---
to GI lab for PEG tube placement via stretcher
[2023-06-13] MEDS: LACTATED RINGERS 1,000 ML 150 ML IV CONT (12:28)
--- NOTE | 2023-06-13 12:31 | WPDANESEPPF ---
Anes - Initial Pre Proc Eval Procedure: Operation Date: 06/13/23 13:00 Proposed Procedures p Percutaneous Endoscopic Gastrostomy - River Tyler MD Date/Time: 06/13/23 12:31 Surgeon: Mayelin Lomeli MD Pre Op Diagnosis: Pneumonia, Generalized Weakness Patient Data Age: 68 Gender: M Height: 1.83 m Weight: 57.7 kg Last Vital Signs Temp 97.8 F 06/13/23 12:11 Pulse 66 06/13/23 12:11 Resp 19 06/13/23 12:11 BP 116/79 06/13/23 12:11 Pulse Ox 96 06/13/23 12:11 O2 Del Method Room Air 06/13/23 12:11 Allergies Allergy/AdvReac Type Severity Reaction Status Date / Time amoxicillin AdvReac Hives Verified 06/12/23 12:49 Home Medications Medication Instructions Recorded Confirmed Type Adults Multivitamin 1 tablet PO DAILY 06/12/23 06/12/23 History Mucinex 600 mg PO BID 06/12/23 06/12/23 History acetaminophen 500 mg PO QID PRN Pain 06/12/23 06/12/23 History aripiprazole 10 mg tablet 10 mg PO HS 06/12/23 06/12/23 History atorvastatin 80 mg tablet 80 mg PO HS 06/12/23 06/12/23 History buspirone 7.5 mg tablet 7.5 mg PO TID 06/12/23 06/12/23 History diclofenac sodium 1 % topical gel 1 ea topical BID PRN Pain 06/12/23 06/12/23 History (Voltaren Arthritis Pain) docusate sodium 100 mg capsule 100 mg PO BID 06/12/23 06/12/23 History (Colace) duloxetine 60 mg capsule,delayed 60 mg PO DAILY 06/12/23 06/12/23 History release gabapentin 300 mg capsule 300 mg PO TID 06/12/23 06/12/23 History hydrocortisone 1 % topical cream 1 applic topical BID 06/12/23 06/12/23 History lamotrigine 100 mg tablet 100 mg PO DAILY 06/12/23 06/12/23 History (Lamictal) levetiracetam 500 mg tablet 500 mg PO BID 06/12/23 06/12/23 History (Keppra) lidocaine 5 % topical patch 1 patch topical DAILY 06/12/23 06/12/23 History loperamide 2 mg tablet 2 mg PO Q4H PRN diarhea 06/12/23 06/12/23 History lorazepam 0.5 mg tablet 0.5 mg PO TID 06/12/23 06/12/23 History metoprolol succinate 25 mg PO DAILY 06/12/23 06/12/23 History ondansetron HCl 4 mg tablet 4 mg PO Q8H PRN n/v 06/12/23 06/12/23 History oxycodone 5 mg tablet 5 mg PO Q6H 06/12/23 06/12/23 History pantoprazole 40 mg tablet,delayed 20 mg PO QAM 06/12/23 06/12/23 History release (Protonix) polyethylene glycol 3350 1 caplet PO DAILY 06/12/23 06/12/23 History rivaroxaban 20 mg tablet (Xarelto) 20 mg PO QPM 06/12/23 06/12/23 History senna 1 tablet PO BID PRN Constipation 06/12/23 06/12/23 History sertraline 1 tablet PO DAILY 06/12/23 06/12/23 History simethicone 1 cap PO TID PRN gas 06/12/23 06/12/23 History tamsulosin 0.4 mg capsule 0.4 mg PO HS 06/12/23 06/12/23 History trazodone 50 mg tablet 50 mg PO HS 06/12/23 06/12/23 History triamcinolone acetonide 0.1 % 1 applic topical BID 06/12/23 06/12/23 History topical cream Laboratory Tests 06/13/23 05:24 WBC 7.4 K/mm3 (4.5-10.0) RBC 3.28 L M/mm3 (4.6-6.20) Hgb 9.8 L g/dL (14.0-18.0) Hct 30.3 L % (42.0-52.0) MCV 92.4 fl (80-100) MCH 29.9 pg (26-34) MCHC 32.3 g/dl (32-36) RDW 12.4 % (11.5-14.5) Plt Count 231 k/mm3 (150-375) MPV 10.6 H fl (7.4-10.4) Sodium 140 mmol/L (137-145) Potassium 3.3 L mmol/L (3.4-5.0) Chloride 110 H mmol/L (98-107) Carbon Dioxide 23 mmol/L (22-30) Anion Gap 7 L mmol/L (8-16) BUN 12 D mg/dL (9-20) Creatinine 0.70 mg/dL (0.7-1.3) Estim Creat Clear Calc 69 ml/min Estimated GFR > 60 (59 - ) Glucose 74 mg/dL (65-110) Calcium 8.6 mg/dL (8.4-10.2) Total Bilirubin 0.7 mg/dL (0.2-1.3) AST 30 U/L (17-59) ALT 12 U/L (6-50) Alkaline Phosphatase 61 U/L (38-126) Total Protein 6.0 L g/dL (6.3-8.2) Albumin 3.2 L g/dL (3.5-5.1) Patient hx anesthesia problems: none Family hx anesthesia problems: none Results Review: All pre-operative results and documents have been reviewed as part of the pre-operative evaluation. [facility] P
--- NOTE | 2023-06-13 12:41 | SUR.PREOP ---
1213 patient refusing procedure. Called pt's contact Mikey Rosales. Inquired about him having POA paperwork since there was none in pt's chart. Discussed with Mikey about pt refusing procedure and confirming that he still wanted to proceed. Also asked for the POA paperwork. Mikey stated [facility] had a cope of the POA forms. Mikey requested to talk to Wlimar via phone. Called Mikey back on portable phone so he could talk with pt. After patient spoke with Wilmar both Mikey and Dominic agreed to proceed. [facility] called spoke with Kristi to see if she had a copy of the POA. She said they did have one and would fax it over to us. Called Mikey back to let him know that [facility] had a copy of the POA and they were going to fax me the paperwork. Discuss him getting me the paperwork if I was unable to get it from [facility]. While on the phone with Mikey the paperwork was received and placed in the chart. Updated Mikey regarding us taking patient back for his procedure since we were able to get everything cleared up. Mikey voiced his approval that we were able to get the paper work.
--- NOTE | 2023-06-13 13:31 | PC.NURSE ---
On 06/13/23, the student, [Fauzia Betancur], provided care and completed [facility] documentation on this patient. I have reviewed the student's documentation and agree with the findings.
[2023-06-13] MEDS: DOCUSATE SODIUM LIQ 100 MG/10 ML UDC FEED TUBE (16:29)
[2023-06-13] MEDS: busPIRone HCL 2.5 MG TABLET XX (16:29)
[2023-06-13] MEDS: GABAPENTIN 300 MG CAPSULE FEED TUBE (16:30)
[2023-06-13] MEDS: DICLOFENAC SODIUM 1% 100 GM GEL (*BKC) 1 APPLIC TOPICAL (16:30)
[2023-06-13] MEDS: busPIRone HCL 5 MG TABLET FEED TUBE (16:30)
[2023-06-13] MEDS: HYDROCORTISONE 1% 30 GM CREAM 1 APPLIC TOPICAL (16:31)
[2023-06-13] MEDS: TRIAMCINOLONE ACET 0.1% CREAM 15 GM TUBE 1 APPLIC TOPICAL (16:32)
[2023-06-13] MEDS: ATORVASTATIN 40 MG TABLET 80 MG FEED TUBE (20:27)
[2023-06-13] MEDS: cefTRIAXone 2 GM/NS 100 ML 2 GM/100 ML BAG IVPB (20:28)
[2023-06-13] MEDS: guaiFENesin 200 MG/10 ML UDC FEED TUBE (20:28)
[2023-06-13] MEDS: traZODone HCL 50 MG TABLET FEED TUBE (20:28)
[2023-06-13] MEDS: ARIPiprazole 10 MG TABLET FEED TUBE (20:28)
[2023-06-14] VITALS (14 sets, daily range): BP systolic 136–137; BP diastolic 79–92; PULSE 58–73; RESP 14–18; TEMP 36.6–37.2; O2SAT 94–96
[2023-06-14] MEDS: oxyCODONE HCL (*CRX) 5 MG TAB IR FEED TUBE ×2 (00:13→20:57)
[2023-06-14] MEDS: guaiFENesin 200 MG/10 ML UDC FEED TUBE ×6 (00:15→20:53)
[2023-06-14] MEDS: IPRATROPIUM 0.5 MG/ALBUTEROL SULFATE 2.5 MG AMPUL.NEB 3 ML INHALATION ×4 (02:50→21:25)
[2023-06-14] MEDS: SODIUM CHLORIDE 0.9% IV 1,000 ML 125 ML IV CONT ×3 (03:42→22:13)
[2023-06-14 05:55] LABS: Hematocrit 28.5 % (42.0-52.0); Hemoglobin 9.4 g/dL (14.0-18.0); Mean Corpuscular Hemoglobin 30.5 pg (26-34); Mean Corpuscular Volume 92.5 fl (80-100); Mean Platelet Volume 10.2 fl (7.4-10.4); Platelet Count Result 207 k/mm3 (150-375); Red Blood Count 3.08 M/mm3 (4.6-6.20); Red Cell Distribution Width 12.6 % (11.5-14.5); White Blood Count 7.9 K/mm3 (4.5-10.0)
[2023-06-14] MEDS: AZITHROMYCIN 500 MG/NS 250 ML 500 MG/250 ML BAG 250 MG IVPB (06:06)
[2023-06-14 06:09] LABS: Alanine Aminotransferase 13 U/L (6-50); Albumin Level 3.2 g/dL (3.5-5.1); Alkaline Phosphatase 58 U/L (38-126); Anion Gap 9 mmol/L (8-16); Aspartate Amino Transferase 35 U/L (17-59); Bilirubin,Total 0.7 mg/dL (0.2-1.3); Blood Urea Nitrogen 7 mg/dL (9-20); Calcium 8.3 mg/dL (8.4-10.2); Carbon Dioxide 17 mmol/L (22-30); Chloride 111 mmol/L (98-107); Estimated CRCL calculation 69 ml/min; Estimated Glomerular Filt Rate > 60; Glucose 78 mg/dL (65-110); Potassium 3.1 mmol/L (3.4-5.0); Sodium 137 mmol/L (137-145)
[2023-06-14] MEDS: lamoTRIgine 100 MG TABLET FEED TUBE (09:52)
[2023-06-14] MEDS: SERTRALINE HCL 25 MG TABLET FEED TUBE (09:52)
[2023-06-14] MEDS: busPIRone HCL 2.5 MG TABLET XX ×3 (09:52→17:33)
[2023-06-14] MEDS: busPIRone HCL 5 MG TABLET FEED TUBE ×3 (09:53→17:32)
[2023-06-14] MEDS: DOCUSATE SODIUM LIQ 100 MG/10 ML UDC FEED TUBE (09:53)
[2023-06-14] MEDS: MULTIVITAMINS THERAPEUTIC TAB (*BKC) 1 TABLET FEED TUBE (09:53)
[2023-06-14] MEDS: GABAPENTIN 300 MG CAPSULE FEED TUBE ×3 (09:54→17:33)
[2023-06-14] MEDS: HYDROCORTISONE 1% 30 GM CREAM 1 APPLIC TOPICAL ×2 (09:54→17:33)
[2023-06-14] MEDS: LANSOPRAZOLE ODT 30 MG TAB.RAP.DR FEED TUBE (09:54)
[2023-06-14] MEDS: TRIAMCINOLONE ACET 0.1% CREAM 15 GM TUBE 1 APPLIC TOPICAL ×2 (09:55→17:33)
[2023-06-14] MEDS: METOPROLOL TARTRATE 12.5 MG TABLET FEED TUBE ×2 (09:56→20:54)
[2023-06-14] MEDS: LIDOCAINE 5% PATCH 1 PATCH TOPICAL (09:57)
[2023-06-14] MEDS: ACETAMINOPHEN ELIXIR 325 MG/10.15 ML UDC 650 MG FEED TUBE (09:58)
--- NOTE | 2023-06-14 10:05 | PCNFU ---
Nutrition Follow-Up Complete: Inadequate oral intake related to loss of appetite, NPO status as evidenced by BMI 17 Goal:Diet advancement Adequate PO intake at least 75% meals and supplements when diet is advanced - Goal no longer applies New Goal: Tolerate tube feeds at goal rate. Labs WNL Pt current nutrition is Vital High Protein @ 45 ml/h. Nutrition recommendation: Modify tube feedings to Jevity 1.5 @ goal rate 55 ml/h. Start at rate of 30 ml/h and advance 10 mls q 4 hours as tolerated. Flush 100 ml water q 4 hours Last recorded weight is 57.7 kg. Bowel Motility: +1 BM 06/14/23 Labs Reviewed: Hgb 9.4, Hct 28.5, Alb 3.2, K+ 3.1, BUN 7 Meds Noted: Cefdinir, loperamide, zofran, miralax, senna Skin: No pressure injury. Incision to abdomen, PEG Additional Notes: Jevity 1.5 @ 55 ml/h goal rate provides: 1815 kcal (100% EER), 77 g protein (100% estimated protein needs), 919 ml free water. with flushes, total water 1519 ml/day. Can increase flushes if needed.Start at 30ml/h and increase 10 ml q 4 hours as tolerated. Discussed with provider and RN. PEG was placed yesterday. Pt will go to [place] with this tube feeding order. Monitoring diet advancement, intakes, labs, plan of care Follow up in 5 days
--- NOTE | 2023-06-14 10:10 | WPDANESPN ---
Anes - Prog Note Post-Op Date/Time: 06/14/23 10:10 Cardiovascular status: normal Respiratory status: normal Airway patency: baseline Mental status: baseline Post-Op hydration status: normal Vital Signs: Last Vital Signs Temp 37.2 C 06/14/23 03:39 Pulse 73 06/14/23 09:56 Resp 14 06/14/23 08:34 BP 136/79 06/14/23 03:39 Pulse Ox 94 06/14/23 08:27 O2 Del Method Room Air 06/14/23 08:27 Pain Score (VAS): 0 I/O: Intake & Output 06/13/23 06/14/23 06/14/23 23:59 07:59 15:59 Intake Total 1200 1000 Output Total 400 300 Balance 800 700 Laboratory Tests 06/14/23 05:45 06/14/23 05:45 06/14/23 05:45 WBC 7.9 RBC 3.08 L Hgb 9.4 L Hct 28.5 L MCV 92.5 MCH 30.5 MCHC 33.0 RDW 12.6 Plt Count 207 MPV 10.2 Sodium 137 Potassium 3.1 L Chloride 111 H Carbon Dioxide 17 L Anion Gap 9 BUN 7 L D Creatinine 0.70 Estim Creat Clear Calc 69 Estimated GFR > 60 Glucose 78 Calcium 8.3 L Total Bilirubin 0.7 AST 35 ALT 13 Alkaline Phosphatase 58 Total Protein 6.0 L Albumin 3.2 L Post-procedural complaints: none Patient Feedback: Patient satisfied with anesthetic care.
[2023-06-14] MEDS: levETIRAcetam ORAL SOL 500 MG/5 ML UDC FEED TUBE ×2 (10:12→20:53)
--- NOTE | 2023-06-14 10:16 | PM.IMPN ---
Progress Note: A&P Assessment and Plan (1) Pneumonia: Code(s): J18.9 - Pneumonia, unspecified organism Status: Acute (2) Dysphagia: Code(s): R13.10 - Dysphagia, unspecified Status: Acute (3) Dementia: Code(s): F03.90 - Unspecified dementia, unspecified severity, without behavioral disturbance, psychotic disturbance, mood disturbance, and anxiety Status: Acute Plan Aspiration PNA -WBC WNL -de-escalated ABX therapy to ceftriaxone MRSA nares negative -Previous HX CVA/dysphagia -NPO Modified barium failed silent aspirating -GI consulted for peg tube placement -Peg tube placement 06/13 -Tube feedings started with goal rate of 45/hr -Continue with ST inpatient and at SNF -CBC/CMP daily Dysphagia -Failed barium swallow -GI consulted for Peg tube placement 06/13 -Tube feedings goal rate 45/hr CVA HX -LT sided deficit -PT/OT pending to return to SNF Seizures -Reusmed Keppra IV until peg tube placed Dementia -resumed medications per tube once placed constipation -Resumed home medications Code status: Full code per patient DVT prophylaxis: Xarelto Stress ulcer prophylaxis: Protonix 40 daily PT/OT notes: PT/OT pending Disposition: Will return to SNF after peg tube placement and tolerating feedings -Patient's previous records reviewed on admission -ER notes reviewed in detail on admission -discussed all findings and current treatment plan with patient/Family/POA -Consultations reviewed for recommendations -Patient's disposition for safe discharge discussed with bilingual case manager Dictation performed by [employer] direct speech recognition software, therefore registered art therapist variants and typographical errors may occur. Time Spent With Patient Time with patient: 15 - 25 minutes Subjective Date/time seen: 06/14/23 10:16 Interval history: Chief Complaint: AMS/SOB Patient was a 68-year-old male who presented to the emergency department via EMS from SNF.? Per ED notes patient is normally alert and oriented x4 however local shelter stated patient had become altered mental with complaints cough.? Patient does have a past medical history of CVA with left-sided deficits dysphagia.? SNF also reported previous history of aspiration pneumonia.? Patient also has past medical history of seizures, hypertension, constipation, and anxiety.? Initial laboratory findings were unremarkable WBC within normal limits however chest x-ray did show atelectasis versus pneumonia.? Patient was admitted to medical-surgical unit for further evaluation and treatment of aspiration pneumonia remain NPO and underwent.? modified barium swallow.? Upon assessment patient was alert and oriented and responding to questions appropriately for did have moments of intermittent confusion and short-term memory. 06/13: Patient scheduled for peg tube placement. Otherwise no other acute distress, WBC WNL will de-escalate IV ABX. Patient to return to SNF once tolerating tube feedings will need continued ST at discharge. 06/14: Patient tolerated procedure well. Will start tube feeds with a goal rate 45/hr. Patient reports headache otherwise no other complaints. Once tolerating tube feeds can return to SNF with continued ST. Review of Systems Review of Systems: All systems reviewed & are unremarkable except as noted in HPI and below Exam Narrative: Physical Exam: - GENERAL: Alert and oriented x 3. Intermittent confusion and memory loss, cachectic - EYES: EOMI. No scleral icterus. PERRLA. - HENT: Moist mucous membranes. No cervical lymphadenopathy. - LUNGS: Clear to auscultation bilaterally. No accessory muscle use. - CARDIOVASCULAR: Regular rate and rhythm. No murmur. No JVD. S1-S2 - ABDOMEN: Soft, non-tender and non-distended. No palpable masses. LUG g-tube - EXTREMITIES: No edema. Non-tender -SKIN: No rashes or lesions. Skin warm, dry. - NEUROLOGIC: LT side deficit. CN II-XII grossly intac
[2023-06-14] MEDS: DICLOFENAC SODIUM 1% 100 GM GEL (*BKC) 1 APPLIC TOPICAL (13:55)
[2023-06-14] MEDS: ATORVASTATIN 40 MG TABLET 80 MG FEED TUBE (20:53)
[2023-06-14] MEDS: ARIPiprazole 10 MG TABLET FEED TUBE (20:53)
[2023-06-14] MEDS: CEFDINIR 250 MG/5 ML ORAL SUSPENSION 300 MG PO (21:10)
[2023-06-14] MEDS: traZODone HCL 50 MG TABLET FEED TUBE (22:10)
[2023-06-15] MEDS: DICLOFENAC SODIUM 1% 100 GM GEL (*BKC) 1 APPLIC TOPICAL (00:17)
[2023-06-15] MEDS: guaiFENesin 200 MG/10 ML UDC FEED TUBE ×4 (00:22→13:12)
[2023-06-15] MEDS: ACETAMINOPHEN ELIXIR 325 MG/10.15 ML UDC 650 MG FEED TUBE ×2 (00:29→09:15)
[2023-06-15 04:44] VITALS: BP 125/76; PULSE 61; RESP 18; TEMP 36.4; O2SAT 94
[2023-06-15 05:31] LABS: Hematocrit 29.8 % (42.0-52.0); Hemoglobin 9.8 g/dL (14.0-18.0); Mean Corpuscular HGB Conc 32.9 g/dl (32-36); Mean Corpuscular Hemoglobin 30.2 pg (26-34); Mean Corpuscular Volume 91.7 fl (80-100); Mean Platelet Volume 10.4 fl (7.4-10.4); Platelet Count Result 222 k/mm3 (150-375); Red Blood Count 3.25 M/mm3 (4.6-6.20); Red Cell Distribution Width 12.9 % (11.5-14.5); White Blood Count 5.6 K/mm3 (4.5-10.0)
[2023-06-15 05:43] LABS: Alanine Aminotransferase 18 U/L (6-50); Albumin Level 2.9 g/dL (3.5-5.1); Alkaline Phosphatase 58 U/L (38-126); Anion Gap 5 mmol/L (8-16); Aspartate Amino Transferase 35 U/L (17-59); Bilirubin,Total 0.4 mg/dL (0.2-1.3); Blood Urea Nitrogen 6 mg/dL (9-20); Calcium 8.1 mg/dL (8.4-10.2); Carbon Dioxide 21 mmol/L (22-30); Chloride 114 mmol/L (98-107); Estimated CRCL calculation 79 ml/min; Estimated Glomerular Filt Rate > 60; Glucose 144 mg/dL (65-110); Sodium 140 mmol/L (137-145)
[2023-06-15] MEDS: SODIUM CHLORIDE 0.9% IV 1,000 ML 125 ML IV CONT (06:37)
[2023-06-15 08:01] LABS: Magnesium 1.9 mg/dL (1.6-2.3)
[2023-06-15] MEDS: AZITHROMYCIN 250 MG TABLET 500 MG PO (08:50)
[2023-06-15] MEDS: lamoTRIgine 100 MG TABLET FEED TUBE (08:51)
[2023-06-15] MEDS: busPIRone HCL 2.5 MG TABLET XX ×2 (08:51→13:12)
[2023-06-15 08:52] VITALS: PULSE 60
[2023-06-15] MEDS: METOPROLOL TARTRATE 12.5 MG TABLET FEED TUBE (08:52)
[2023-06-15] MEDS: busPIRone HCL 5 MG TABLET FEED TUBE ×2 (08:52→13:12)
[2023-06-15] MEDS: GABAPENTIN 300 MG CAPSULE FEED TUBE ×2 (08:52→13:12)
[2023-06-15] MEDS: LANSOPRAZOLE ODT 30 MG TAB.RAP.DR FEED TUBE (08:54)
[2023-06-15] MEDS: POTASSIUM CHLORIDE INJ 40 MEQ in SODIUM CHLORIDE 0.9% IV 500 ML 130 MEQ IVPB (08:54)
[2023-06-15] MEDS: MULTIVITAMINS THERAPEUTIC TAB (*BKC) 1 TABLET FEED TUBE (08:54)
[2023-06-15] MEDS: SERTRALINE HCL 25 MG TABLET FEED TUBE (08:54)
[2023-06-15] MEDS: HYDROCORTISONE 1% 30 GM CREAM 1 APPLIC TOPICAL (08:58)
[2023-06-15] MEDS: TRIAMCINOLONE ACET 0.1% CREAM 15 GM TUBE 1 APPLIC TOPICAL (08:58)
[2023-06-15] MEDS: levETIRAcetam ORAL SOL 500 MG/5 ML UDC FEED TUBE (09:01)
[2023-06-15] MEDS: LIDOCAINE 5% PATCH 1 PATCH TOPICAL (09:01)
[2023-06-15 09:31] VITALS: PULSE 60; RESP 18
[2023-06-15] MEDS: IPRATROPIUM 0.5 MG/ALBUTEROL SULFATE 2.5 MG AMPUL.NEB 3 ML INHALATION (09:31)
[2023-06-15 09:33] VITALS: O2SAT 92
[2023-06-15 09:41] VITALS: PULSE 58; RESP 18
[2023-06-15] MEDS: CEFDINIR 250 MG/5 ML ORAL SUSPENSION 300 MG FEED TUBE (11:40)
--- NOTE | 2023-06-15 12:02 | PM.DS ---
DS: Admitting Diagnosis Discharge Date 06/15/2023 Admitting Diagnosis Aspiration PNA/ dysphagia DS: Discharge Diagnosis Discharge Diagnosis (1) Pneumonia: Qualifiers: Pneumonia type: due to unspecified organism Laterality: unspecified laterality Lung location: unspecified part of lung Qualified Code(s): J18.9 - Pneumonia, unspecified organism Code(s): J18.9 - Pneumonia, unspecified organism Status: Acute (2) Dysphagia: Qualifiers: Dysphagia type: unspecified Qualified Code(s): R13.10 - Dysphagia, unspecified Code(s): R13.10 - Dysphagia, unspecified Status: Acute (3) Dementia: Qualifiers: Dementia type: unspecified type Dementia severity: mild Dementia behavioral or psychological symptom: without behavioral, psychotic, or mood disturbance or anxiety Qualified Code(s): F03.A0 - Unspecified dementia, mild, without behavioral disturbance, psychotic disturbance, mood disturbance, and anxiety Code(s): F03.90 - Unspecified dementia, unspecified severity, without behavioral disturbance, psychotic disturbance, mood disturbance, and anxiety Status: Acute Plan Aspiration PNA - azithromycin and cefdinir p.o. ABX therapy take as directed - aspiration precautions - NPO - continue tube feedings - speech therapy to continue to follow and advanced if possible Dysphagia - strict NPO - PEG tube - Jevity 1.5 goal rate 55 per hour Flush 100 ml water q 4 hours - continue speech therapy CVA HX -LT sided deficit -PT/OT Seizures -Reusmed Keppra per tube Dementia -resumed medications per tube constipation -per tube - monitor for diarrhea. Hold Stool softeners -monitor blood sugars - monitor for electrolyte imbalances DS: Summary Hospital Course Reason for hospitalization: Aspiration PNA/ dysphagia Hospital Course: Chief Complaint: AMS/SOB Patient was a 68-year-old male who presented to the emergency department via EMS from SNF.? Per ED notes patient is normally alert and oriented x4 however local long term stated patient had become altered mental with complaints cough.? Patient does have a past medical history of CVA with left-sided deficits dysphagia.? SNF also reported previous history of aspiration pneumonia.? Patient also has past medical history of seizures, hypertension, constipation, and anxiety.? Initial laboratory findings were unremarkable WBC within normal limits however chest x-ray did show atelectasis versus pneumonia.? Patient was admitted to medical-surgical unit for further evaluation and treatment of aspiration pneumonia remain NPO and underwent.? modified barium swallow.? Upon assessment patient was alert and oriented and responding to questions appropriately for did have moments of intermittent confusion and short-term memory. 06/13:??Patient scheduled for peg tube placement.? Otherwise no other acute distress, WBC WNL will de-escalate IV ABX.? Patient to return to SNF once tolerating tube feedings will need continued ST at discharge. 06/14:??Patient tolerated procedure well.? Will start tube feeds with a goal rate 55/hr.? Patient reports headache otherwise no other complaints.? Once tolerating tube feeds can return to SNF with continued ST. 06/15: D/C patient tolerating tube feeds at a goal rate of 55 per hour with no residual. Patient in no acute distress with no complaints patient be discharged back to SNF will need continued PT / OT /ST. continue strict NPO unless improvement. Patient to continue aspiration precautions. Patient deescalated to p.o. antibiotic therapy and discharged via EMS. Time Spent with Patient Time attestation: Total time spent providing and/or coordinating discharge services: Exam Narrative: Physical Exam: - GENERAL: Alert and oriented x 3. Intermittent confusion and memory loss, cachectic - EYES: EOMI. No scleral icterus. PERRLA. - HENT: Moist mucous membranes. No cervic
--- NOTE | 2023-06-15 12:41 | PCSTNOTE ---
Attempted to see pt. twice on this date. Pt. sleeping soundly both times. Able to arouse in one instance, but pt. did not sustain level of alertness to participate in therapy sessions/therapeutic exercises.
[2023-06-15] MEDS: oxyCODONE HCL (*CRX) 5 MG TAB IR FEED TUBE (14:38)
[2023-06-15 14:51] VITALS: BP 127/92; PULSE 60; RESP 18; TEMP 37; O2SAT 97
--- NOTE | 2023-06-18 16:51 | WPDGICN ---
Assessment and Plan Assessment and plan (1) Dysphagia: Qualifiers: Dysphagia type: unspecified Qualified Code(s): R13.10 - Dysphagia, unspecified Code(s): R13.10 - Dysphagia, unspecified Status: Acute Assessment and Plan: he is unable to swallow he in fact has been losing some weight. He admits that he chokes when he tries to drink. (2) Pneumonia: Qualifiers: Laterality: unspecified laterality Lung location: unspecified part of lung Pneumonia type: due to unspecified organism Qualified Code(s): J18.9 - Pneumonia, unspecified organism Code(s): J18.9 - Pneumonia, unspecified organism Status: Acute Assessment and Plan: He has had a previous documented episode of aspiration pneumonia Plan percutaneous endoscopic gastrostomy tube placement will be done. I discussed this with the patient including the possible risks such as bleeding or perforation or infection. He is in agreement with this. GI Consult Note Consult date/time: 06/18/23 16:51 HPI: Wilmar De Souza is a 68 year old male Who was brought to the hospital from retirement because he has had altered mental status and coughing. The patient has been found to be having episodes of aspiration and in fact has previous episodes of aspiration pneumonia. He failed a bedside swallow evaluation. He has been kept NPO and I was asked to see him for G-tube placement. He states that he is agreeable because as he said what else can I do . Review of Systems Review of Systems: All systems reviewed & are unremarkable except as noted in HPI and below PMFSH Past Medical History Medical History CVA (cerebral vascular accident) Social History Social History Smoking packs per day: 1 Smoking cigarettes per day: 20.0 Years smoked: 30 Smoking pack-years: 30.00 Smoking status: Former smoker Tobacco type: cigarettes Second hand tobacco smoke exposure: Yes Alcohol intake: former Substance use: never Substance use type: does not use Spiritual care concerns: No Meds Home Medications and Allergies Home Medications Medication Instructions Recorded Confirmed Type Adults Multivitamin 1 tablet PO DAILY 06/12/23 06/12/23 History Mucinex 600 mg PO BID 06/12/23 06/12/23 History acetaminophen 500 mg PO QID PRN Pain 06/12/23 06/12/23 History aripiprazole 10 mg tablet 10 mg PO HS 06/12/23 06/12/23 History atorvastatin 80 mg tablet 80 mg PO HS 06/12/23 06/12/23 History buspirone 7.5 mg tablet 7.5 mg PO TID 06/12/23 06/12/23 History diclofenac sodium 1 % topical gel 1 ea topical BID PRN Pain 06/12/23 06/12/23 History (Voltaren Arthritis Pain) hydrocortisone 1 % topical cream 1 applic topical BID 06/12/23 06/12/23 History lidocaine 5 % topical patch 1 patch topical DAILY 06/12/23 06/12/23 History lorazepam 0.5 mg tablet 0.5 mg PO TID 06/12/23 06/12/23 History ondansetron HCl 4 mg tablet 4 mg PO Q8H PRN n/v 06/12/23 06/12/23 History rivaroxaban 20 mg tablet (Xarelto) 20 mg PO QPM 06/12/23 06/12/23 History simethicone 1 cap PO TID PRN gas 06/12/23 06/12/23 History triamcinolone acetonide 0.1 % 1 applic topical BID 06/12/23 06/12/23 History topical cream acetaminophen 160 mg/5 mL oral 650 mg (20.3125 mL) feeding tube 06/15/23 Rx suspension (Nortemp) Q4H PRN Mild Pain (1-3) Or Fever #30 mL aripiprazole 10 mg tablet (Abilify) 10 mg feeding tube HS #1 tablet 06/15/23 Rx atorvastatin 40 mg tablet 80 mg feeding tube HS #1 tablet 06/15/23 Rx azithromycin 250 mg tablet 500 mg PO DAILY #4 tabs 06/15/23 Rx (Zithromax) buspirone 5 mg tablet 5 mg feeding tube TID #1 tablet 06/15/23 Rx cefdinir 250 mg/5 mL oral 300 mg (6 mL) feeding tube Q12HR 06/15/23 Rx suspension #12 mL docusate sodium 50 mg/5 mL oral 100 mg (10 mL) feeding tube BID 06/15/23 Rx liquid #1,000 mL doxazosin 4
== END 2023-06-15 16:20 | DRG 179 ==
LOC: ANHED 23:25 → ANH2MED 06-12 00:01
PROVIDERS: Internal Medicine Gastroenterology; Admitting Provider Internal Medicine; Emergency Provider Emergency Medicine; Visit Provider Nurse Practitioner Family
PROC: 0DH63UZ Insertion of Feeding Device into Stomach, Percutaneous Approach (ICD-10-PCS; CPT 43246; principal; 2023-06-13 13:00)
DX: J69.0 Pneumonitis due to inhalation of food and vomit (principal); I69.391 Dysphagia following cerebral infarction; F03.90 Unspecified dementia, unspecified severity, without behavioral disturbance, psychotic disturbance, mood disturbance, and anxiety; K59.00 Constipation, unspecified; Z20.822 Contact with and (suspected) exposure to COVID-19; R56.9 Unspecified convulsions; I10 Essential (primary) hypertension; F41.9 Anxiety disorder, unspecified; K21.00 Gastro-esophageal reflux disease with esophagitis, without bleeding; Z87.891 Personal history of nicotine dependence
CPT/HCPCS: 36415; 43246; 70450; 71046; 80048; 80053; 81001; 83605; 83735; 85025; 85027; 85610; 85730; 87040; 87637; 87641; 92526; 92611; 93005; 94640; 96365; 97161; 97165; 99285; A9270; G0378; J0456; J0692; J0696; J1200; J1953; J2704; J3370; J3480; J7030; J7040; J7120

== ENCOUNTER 2023-07-20 19:49 | Emergency (ER) | payer MEDICARE, MEDICAID, SELFPAY ==
[2023-07-20] VITALS (15 sets, daily range): BP systolic 108–160; BP diastolic 72–77; PULSE 60–94; RESP 12–27; TEMP 36.6; O2SAT 94–99
--- NOTE | ~2023-07-20 | XR_ITS ---
EXAMINATION: XR chest 1V portable Exam Date/Time: 07/20/2023 20:05 CDT HISTORY: cough Comparison: 06/11/2023. RESULT: Lines, tubes, and devices: ACDF hardware. Left chest pacer with intact leads. Coronary stent. Lungs and pleura: Persistent right hemidiaphragm elevation. Streaky bibasilar opacities, slightly im proved in the left lung base, slightly worse in the right lung base. Cardiomediastinal silhouette: Stable. Other: No acute osseous or upper abdominal finding. IMPRESSION: Waxing and waning bibasilar opacities likely representing atelectasis, infection is not excluded. Reviewed, dictated and finalized at location K. IMPRESSION: Waxing and waning bibasilar opacities likely representing atelectasis, infectio n is not excluded.
--- NOTE | 2023-07-20 19:56 | ECG_ITS ---
Measurements Intervals [place] Rate: 74 P: -11 IA: 203 QRS: -59 QRSD: 149 T: 97 QT: 392 QTc: 435 Interpretive Statements ELECTRONIC ATRIAL PACEMAKER RIGHT BUNDLE BRANCH BLOCK LEFT ANTERIOR FASCICULAR BLOCK ANTEROSEPTAL INFARCT, AGE INDETERMINATE BASELINE ARTIFACT- I, II, III, AVL, AVF, V4-V6 ABNORMAL ECG COMPARED TO ECG 06/11/2023 19:42:05 NO SIGNIFICANT CHANGES Electronically Signed On 07-20-2023 21:29:21 CDT by Walter Goodson D.O.
[2023-07-20 20:32] LABS: Basophils Percent Auto 0.4 % (0.2-1.2); Eosinophils Absolute Auto 0.2 K/mm3 (0-0.3); Eosinophils Percent Auto 2.5 % (0-4.4); Hemoglobin 12.3 g/dL (14.0-18.0); Immature Granulocyte Absolute 0.01 K/mm3 (0.00-0.031); Immature Granulocyte Percent A 0.1 % (0-0.5); Lymphocytes Percent Auto 19.1 % (18.3-44.2); Mean Corpuscular HGB Conc 32.4 g/dl (32-36); Mean Corpuscular Hemoglobin 30.7 pg (26-34); Mean Corpuscular Volume 94.8 fl (80-100); Mean Platelet Volume 10.9 fl (7.4-10.4); Monocytes Absolute Auto 0.6 K/mm3 (0.1-0.6); Monocytes Percent Auto 6.7 % (2.6-8.5); Neutrophils Absolute Auto 6.3 K/mm3 (1.3-6.7); Neutrophils Percent Auto 71.2 % (45.5-73.1); Platelet Count Result 267 k/mm3 (150-375); Red Blood Count 4.01 M/mm3 (4.6-6.20); Red Cell Distribution Width 13.9 % (11.5-14.5); White Blood Count 8.9 K/mm3 (4.5-10.0)
[2023-07-20 20:40] LABS: Alanine Aminotransferase 25 U/L (6-50); Albumin Level 4.4 g/dL (3.5-5.1); Alkaline Phosphatase 73 U/L (38-126); Anion Gap 11 mmol/L (8-16); Aspartate Amino Transferase 33 U/L (17-59); Bilirubin,Total 0.7 mg/dL (0.2-1.3); Blood Urea Nitrogen 27 mg/dL (9-20); Calcium 9.4 mg/dL (8.4-10.2); Carbon Dioxide 25 mmol/L (22-30); Chloride 103 mmol/L (98-107); Estimated CRCL calculation 84 ml/min; Estimated Glomerular Filt Rate > 60; Glucose 94 mg/dL (65-110); Potassium 4.5 mmol/L (3.4-5.0); Sodium 139 mmol/L (137-145)
[2023-07-20 20:52] LABS: NT Pro B Type Natriuretic Pept 302 pg/mL (19.9-100); Troponin I < 0.012 ng/mL (0.000-0.034)
[2023-07-20 21:01] LABS: INR 1.8; Prothrombin Time 21.8 Seconds (11.1-14.7)
[2023-07-20 21:02] LABS: Partial Thromboplastin Time 41.8 Seconds (22.3-36.8)
[2023-07-20 21:03] LABS: Procalcitonin 0.1 ng/mL
[2023-07-20 21:07] LABS: Influenza A QL RT-PCR Negative (Negative); Influenza B QL RT-PCR Negative (Negative); RSV RNA, RT-PCR Negative (Negative); SARS-CoV-2 RNA PCR Negative (Negative)
[2023-07-20] MEDS: Acetaminophen/HYDROcodone ELIXIR (*CRX) 7.5 MG/15 ML UDC FEED TUBE (21:23)
--- NOTE | 2023-07-20 21:29 | PC.NURSE ---
Patient given med via g-tube. G-tube flushed with 20 ml of warm water, med then given slowly, then flushed with 40ml of warm water after med administration. Patient tolerated well.
--- NOTE | 2023-07-20 21:54 | ED.GENADULT ---
HPI - General Adult General Chief complaint: Recheck/Abnormal Lab/Rx Stated complaint: SOB, ABNORMAL CXR = PNE Time Seen by Provider: 07/20/23 20:17 History of Present Illness HPI narrative: patient is 5-year-old gentleman who presents emergency department with chief complaint of abnormal chest x-ray and possible pneumonia. Patient has history of aspiration pneumonia and has been admitted multiple times for this. Her patient gets G-tube feedings and is not supposed to take anything by mouth the patient had a chest x-ray done yesterday that shows worsening infiltrates and was sent to the emergency department. Related Data Home Medications Medication Instructions Recorded Confirmed Adults Multivitamin 1 tablet PO DAILY 06/12/23 06/12/23 Mucinex 600 mg PO BID 06/12/23 06/12/23 acetaminophen 500 mg PO QID PRN Pain 06/12/23 06/12/23 aripiprazole 10 mg tablet 10 mg PO HS 06/12/23 06/12/23 atorvastatin 80 mg tablet 80 mg PO HS 06/12/23 06/12/23 buspirone 7.5 mg tablet 7.5 mg PO TID 06/12/23 06/12/23 diclofenac sodium 1 % topical gel 1 ea topical BID PRN Pain 06/12/23 06/12/23 (Voltaren Arthritis Pain) hydrocortisone 1 % topical cream 1 applic topical BID 06/12/23 06/12/23 lidocaine 5 % topical patch 1 patch topical DAILY 06/12/23 06/12/23 lorazepam 0.5 mg tablet 0.5 mg PO TID 06/12/23 06/12/23 ondansetron HCl 4 mg tablet 4 mg PO Q8H PRN n/v 06/12/23 06/12/23 rivaroxaban 20 mg tablet (Xarelto) 20 mg PO QPM 06/12/23 06/12/23 simethicone 1 cap PO TID PRN gas 06/12/23 06/12/23 triamcinolone acetonide 0.1 % 1 applic topical BID 06/12/23 06/12/23 topical cream Allergies Allergy/AdvReac Type Severity Reaction Status Date / Time amoxicillin AdvReac Hives Verified 06/14/23 09:25 Review of Systems Review of Systems: A 10 system review of systems was completed on the patient and is negative except for what is stated in the HPI. Nursing and ancillary documentation was reviewed. [facility] Past Medical History Medical History CVA (cerebral vascular accident) Social History Social History Smoking packs per day: 1 Smoking cigarettes per day: 20.0 Years smoked: 30 Smoking pack-years: 30.00 Smoking status: Former smoker Tobacco type: cigarettes Second hand tobacco smoke exposure: Yes Alcohol intake: former Substance use: never Substance use type: does not use Spiritual care concerns: No Exam Narrative: GENERAL: Well-appearing, well-nourished, and in no acute distress. HEAD: Normocephalic, atraumatic. EYES: PERRLA and EOMI. ENT: Nares clear, no rhinorrhea or epistaxis. Mucous membranes moist. NECK: Supple. CHEST: Clear to auscultation. No respiratory distress. HEART: Regular rate and rhythm. No murmur heard. Normal peripheral pulses. ABDOMEN: Soft, nontender, nondistended, normal active bowel sounds. EXTREMITIES: Normal range of motion. No edema. SKIN: Warm, dry, no rash. NEURO: No focal deficits. Alert and oriented x3. left-sided weakness that is baseline PSYCH: Normal mood and affect. Course Vital Signs Vital signs: Vital Signs Temperature 36.6 C 07/20/23 19:48 Pulse Rate 94 07/20/23 19:48 Respiratory Rate 14 07/20/23 19:48 Blood Pressure 131/77 07/20/23 19:48 Pulse Oximetry 97 07/20/23 19:48 Oxygen Delivery Room Air 07/20/23 19:48 Temperature 36.6 C 07/20/23 19:48 Pulse Rate 94 07/20/23 19:48 Respiratory Rate 19 07/20/23 19:56 Blood Pressure 131/77 07/20/23 19:48 Pulse Oximetry 94 07/20/23 19:56 Oxygen Delivery Room Air 07/20/23 19:48 Medical Decision Making [facility] Narrative Medical decision making narrative: differential diagnosis includes aspiration pneumonia, Laboratory studies were obtained showed a white count of 8.9 electrolytes were within normal limits BUN is 27 creatinine 0.6 BNP was 302 tropo
== END 2023-07-20 23:30 ==
PROVIDERS: Emergency Provider Emergency Medicine
DX: R91.8 Other nonspecific abnormal finding of lung field (principal); Z20.822 Contact with and (suspected) exposure to COVID-19; I69.954 Hemiplegia and hemiparesis following unspecified cerebrovascular disease affecting left non-dominant side; Z93.1 Gastrostomy status; Z87.01 Personal history of pneumonia (recurrent); Z87.891 Personal history of nicotine dependence; Z95.0 Presence of cardiac pacemaker; I45.2 Bifascicular block; Z79.01 Long term (current) use of anticoagulants
CPT/HCPCS: 36415; 71045; 80053; 83605; 83880; 84145; 84484; 85025; 85610; 85730; 87040; 87637; 93005; 99284; A9270

== ENCOUNTER 2024-02-28 01:24 | Emergency (ER) | payer MEDICARE, MEDICAID, SELFPAY ==
--- NOTE | ~2024-02-28 | CT_ITS ---
EXAMINATION: CT thoracic spine wo con DATE: 02/28/2024 03:17 INDICATION: Midline back pain. TECHNIQUE: Computed tomography (CT) of the thoracic spine was performed without intravenous contrast. Automated exposure control and iterative reconstruction technique were employed. The dose-length pro duct was 1160.65 mGy-cm. COMPARISON: CT abdomen and pelvis 07/28/2022 FINDINGS: There is a large volume of material in the esophagus, which is patulous. Calcifications in the spleen are consistent with old granulomatous disease. There is a 1.3 cm cyst in left kidney. Ther e is cortical thinning of left kidney. There are 2 stones in right kidney with the larger measuring 6 mm. Partially visualized is an abdominal aortic aneurysm measuring at least 3.3 cm. There is mild em physema. There is mild atelectasis in the lungs. There is elevation of right hemidiaphragm. Alignment is normal. There are changes of anterior fusion procedure from C5 to C7 with anterior plate and scre ws and healed interbody bone graft. There is mild chronic anterior wedging of T5, T6, T9, T11, T12, a nd L1. There is diffuse decreased disc height at most levels, severe at T3-T4, T5-T6, T6-T7, and T9-T 10. There is multilevel facet joint osteoarthritis, severe on the right at T8-T9. There is multilevel mild neural foraminal stenosis bilaterally. On the right, there is moderate neural foraminal stenosi s at C7-T1 and T8-T9. There is mild central canal stenosis at T6-T7, T7-T8, and T10-T11. IMPRESSION: 1. Severe thoracic spondylosis. 2. Mild emphysema. 3. Partially visualized abdominal aortic aneurysm measuring at least 3.3 cm. Reviewed, dictated and finalized at location A.
[2024-02-28 01:25] VITALS: BP 111/87; PULSE 74; RESP 17; TEMP 36.4; O2SAT 96
[2024-02-28] MEDS: ACETAMINOPHEN 500 MG TABLET 1000 MG PO (02:10)
--- NOTE | 2024-02-28 02:38 | ED_ITS ---
HPI - Fall General Chief Complaint: Fall Stated Complaint: FALL Source: patient and EMS Mode of arrival: EMS Limitations: no limitations History of Present Illness HPI Narrative: This is a 68-year-old male, with history of stroke and subsequent left side weakness/numbness, brought in by EMS from his longterm after a fall from his bed. EMS reports they were called after the patient was found down. Reportedly the patient's bed was to approximately 5 ft in the air. The patient states he rolled over in attempt to find his call light and fell out of the bed. He complains of moderate headache, neck and midback pain. He has no other complaints at this time. Related Data Home Medications Medication Instructions Recorded Confirmed Adults Multivitamin 1 tablet PO DAILY 06/12/23 06/12/23 Mucinex 600 mg PO BID 06/12/23 06/12/23 acetaminophen 500 mg PO QID PRN Pain 06/12/23 06/12/23 aripiprazole 10 mg tablet 10 mg PO HS 06/12/23 06/12/23 atorvastatin 80 mg tablet 80 mg PO HS 06/12/23 06/12/23 buspirone 7.5 mg tablet 7.5 mg PO TID 06/12/23 06/12/23 diclofenac sodium 1 % topical gel 1 ea topical BID PRN Pain 06/12/23 06/12/23 (Voltaren Arthritis Pain) hydrocortisone 1 % topical cream 1 applic topical BID 06/12/23 06/12/23 lorazepam 0.5 mg tablet 0.5 mg PO TID 06/12/23 06/12/23 ondansetron HCl 4 mg tablet 4 mg PO Q8H PRN n/v 06/12/23 06/12/23 rivaroxaban 20 mg tablet (Xarelto) 20 mg PO QPM 06/12/23 06/12/23 simethicone 1 cap PO TID PRN gas 06/12/23 06/12/23 triamcinolone acetonide 0.1 % 1 applic topical BID 06/12/23 06/12/23 topical cream Allergies Allergy/AdvReac Type Severity Reaction Status Date / Time amoxicillin AdvReac Hives Verified 06/14/23 09:25 Review of Systems Review of Systems: All systems reviewed & are unremarkable except as noted in HPI and below PMFSH Past Medical History Medical History CVA (cerebral vascular accident) Social History Social History Smoking packs per day: 1 Smoking cigarettes per day: 20.0 Years smoked: 30 Smoking pack-years: 30.00 Smoking status: Former smoker Tobacco type: cigarettes Second hand tobacco smoke exposure: Yes Alcohol intake: former Substance use: never Substance use type: does not use Spiritual care concerns: No Exam Narrative: GENERAL: Well-developed, well-nourished, and in no acute distress. HEAD: Normocephalic, atraumatic. EYES: PERRLA and EOMI. ENT: Nares clear, no rhinorrhea or epistaxis. Mucous membranes moist. Oropharynx without tonsillar hypertrophy exudate or other lesions. Bilateral TMs pearly lee nonbulging NECK: Supple. Mild mid spine tenderness to palpation at approximately C5 through C7 with no step-off or crepitus CHEST: Clear to auscultation. No respiratory distress. No wheezes rales or rhonchi HEART: Regular rate and rhythm. No murmur heard. Normal peripheral pulses. ABDOMEN: Soft, nontender, nondistended, normal active bowel sounds. A G-tube is noted in the left upper quadrant without bleeding or purulent drainage BACK: Mild mid spine tenderness to palpation at approximately T1-T4 with no step-off or crepitus EXTREMITIES: Normal range of motion. No edema. SKIN: Warm, dry, no rash. NEURO: Alert and oriented x3. Left upper and lower extremity contractures and flaccidity. Strength 5/5 in the right upper and lower extremities. Sensation intact on the right side and diminished on the left PSYCH: Normal mood and affect. Course Course Emergency Course: 02:38 - STAT Rad interpretation of CT C-spine demonstrates ?no acute traumatic abnormality identified. ? Incidental findings include degenerative changes of the spine and fusion changes from C5-C7. Cervical collar cleared. 02:45 - STAT Rad interpretation of CT head demonstrates ?no acute intracranial abnormality identified. ? incidental findings include chronic small-vessel ische kitty disease and cerebral volume loss, along with encephalomalacia in the right MCA distribution. 04:20 - STAT Rad interpretation of CT thoracic spine demonstrates ?no acute traumatic abnormality identified in the thoracic spine. ? Incidental findings include degenerative changes in fusion changes of the lower cervical spine. Will discharge. I discussed the findings and recommendations with the patient. Discussed return and emergency precautions including signs/symptoms of stroke and intracranial hemorrhage. The patient voiced understanding and agreement with the plan. All questions answered to his satisfaction. Vital Signs Vital signs: Vital Signs Temperature 97.6 F 02/28/24 01:25 Pulse Rate 74 02/28/24 01:25 Respiratory Rate 17 02/28/24 01:25 Blood Pressure 111/87 02/28/24 01:25 Pulse Oximetry 96 02/28/24 01:25 Oxygen Delivery Room Air 02/28/24 01:25 Temperature 97.6 F 02/28/24 03:53 Pulse Rate 60 02/28/24 03:53 Respiratory Rate 12 02/28/24 03:53 Blood Pressure 93/70 L 02/28/24 03:53 Pulse Oximetry 95 02/28/24 03:53 Oxygen Delivery Room Air 02/28/24 01:25 MDM - Fall MDM Narrative Medical decision making narrative: Plan: Imaging, pain control, reassess Differential Diagnosis Differential diagnosis: Likely other (Intracranial hemorrhage, skull fracture, cervical spine fracture, thoracic spine fracture, contusion, other) Discharge Plan Discharge Clinical Impression: Acute neck pain Headache Qualifiers: Headache type: post-traumatic Headache chronicity pattern: acute headache Intractability: not intractable Qualified Code(s): G44.319 - Acute post- traumatic headache, not intractable Back pain, thoracic Qualifiers: Chronicity: acute Back pain laterality: midline Qualified Code(s): M54.6 - Pain in thoracic spine Concussion Qualifiers: Encounter type: initial encounter Loss of consciousness presence/duration: without LOC Qualified Code(s): S06.0X0A - Concussion without loss of consciousness, initial encounter Patient Disposition: [facility]As[facility] Living Condition: Stable Instructions: Antibiotic Form, Concussion (ED) Additional Instructions: You were seen in the emergency department. Scans of the head neck and back were not concerning for fracture or dislocation. There are degenerative changes noted in your neck and thoracic spine. I recommend following up with your primary care doctor. If you develop new weakness/numbness, persistent vomiting, change/loss of vision/hearing, or if you have other emergent concerns for life, limb, or eyesight, return to the emergency department. Patient Language: French Prescriptions: Continued lidocaine 5 % Adhesive Patch,Medicated 1 patch TOPICAL DAILY Qty: 30 0RF Rx Instructions: leave on most painful area for up to 12 hrs No Action atorvastatin 80 mg tablet 80 mg PO HS buspirone 7.5 mg tablet 7.5 mg PO TID aripiprazole 10 mg tablet 10 mg PO HS Adults Multivitamin 1 tablet PO DAILY ondansetron HCl 4 mg Tablet 4 mg PO Q8H PRN (Reason: n/v) triamcinolone acetonide 0.1 % Cream 1 applic TOPICAL BID Rx Instructions: to chest lorazepam 0.5 mg Tablet 0.5 mg PO TID hydrocortisone 1 % Cream 1 applic TOPICAL BID Rx Instructions: left shoulder and left chest wall diclofenac sodium [Voltaren Arthritis Pain] 1 % Gel 1 ea TOPICAL BID PRN (Reason: Pain) Rx Instructions: joints Xarelto 20 mg Tablet 20 mg PO QPM Rx Instructions: must administer with evening meal Mucinex 600 mg PO BID acetaminophen 500 mg PO QID PRN (Reason: Pain) simethicone 1 cap PO TID PRN (Reason: gas) aripiprazole [Abilify] 10 mg Tablet 10 mg feeding tube HS Qty: 1 0RF docusate sodium 50 mg/5 mL Liquid 100 mg feeding tube BID Qty: 1000 0RF atorvastatin 40 mg Tablet 80 mg feeding tube HS Qty: 1 0RF buspirone 5 mg Tablet 5 mg feeding tube TID Qty: 1 0RF gabapentin [Neurontin] 300 mg Capsule 300 mg feeding tube TID Qty: 1 0RF lamotrigine [Lamictal] 100 mg Tablet 100 mg feeding tube DAILY Qty: 1 0RF lansoprazole 30 mg Tablet,Disintegrat, Delay Rel 30 mg feeding tube QAM Qty: 1 0RF loperamide 2 mg Capsule 2 mg feeding tube Q4H PRN (Reason: diarhea) Qty: 1 0RF levetiracetam 100 mg/mL Solution 500 mg feeding tube Q12HR Qty: 200 0RF multivitamin with folic acid [Thera] 400 mcg Tablet 1 tablet feeding tube QAM Qty: 1 0RF polyethylene glycol 3350 [Miralax] 17 gram Powder In Packet 17 g feeding tube QAM Qty: 17 0RF oxycodone 5 mg Tablet 5 mg feeding tube Q6H PRN (Reason: Pain Rated 6 Or Greater) Qty: 1 0RF sennosides [Senokot] 8.6 mg Tablet 8.6 mg feeding tube BID PRN (Reason: Constipation) Qty: 1 0RF acetaminophen [Nortemp] 160 mg/5 mL Suspension 650 mg feeding tube Q4H PRN (Reason: Mild Pain (1-3) Or Fever) Qty: 30 0RF trazodone 50 mg Tablet 50 mg feeding tube HS Qty: 1 0RF sertraline [Zoloft] 50 mg Tablet 25 mg feeding tube QAM Qty: 1 0RF azithromycin [Zithromax] 250 mg Tablet 500 mg PO DAILY Qty: 4 0RF guaifenesin 100 mg/5 mL Liquid 200 mg feeding tube Q4HR Qty: 1000 0RF cefdinir 250 mg/5 mL Suspension For Reconstitution 300 mg feeding tube Q12HR Qty: 12 0RF metoprolol tartrate 25 mg tablet 12.5 mg feeding tube BID Qty: 1 0RF olanzapine [Zyprexa Zydis] 5 mg Tablet,Disintegrating 5 mg Not Applicable PRN PRN (Reason: Agitation) Qty: 1 0RF doxazosin 4 mg tablet 4 mg feeding tube HS Qty: 1 0RF Follow-up/Referrals: Yobany Holley [Other] - 1 Week UNKNOWN,DOCTOR [Primary Care Provider] - Stand Alone Forms: [facility] Discharge Time of Disposition: 04:25
--- NOTE | 2024-02-28 02:39 | PC.NURSE ---
C-collar removed after EDP Dr. Coles advised CT scan report looked okay.
[2024-02-28] MEDS: KETOROLAC 30 MG/ML VIAL (*BKC) IM (02:48)
[2024-02-28] MEDS: MELATONIN 5 MG TABLET PO (03:14)
[2024-02-28 03:53] VITALS: BP 93/70; PULSE 60; RESP 12; TEMP 36.4; O2SAT 95
[2024-02-28 04:48] VITALS: BP 107/76; PULSE 60; RESP 17; TEMP 36.6; O2SAT 99
== END 2024-02-28 05:28 ==
PROVIDERS: Emergency Provider Preventive Medicine Aerospace Medicine
DX: S06.0X0A Concussion without loss of consciousness, initial encounter (principal); S19.9XXA Unspecified injury of neck, initial encounter; S29.9XXA Unspecified injury of thorax, initial encounter; I69.354 Hemiplegia and hemiparesis following cerebral infarction affecting left non-dominant side; Z87.891 Personal history of nicotine dependence; Z79.899 Other long term (current) drug therapy; Z79.01 Long term (current) use of anticoagulants; W06.XXXA Fall from bed, initial encounter
CPT/HCPCS: 70450; 72125; 72128; 96372; 99284; A9270; J1885

== ENCOUNTER 2024-05-16 00:38 | Emergency (ER) | payer MEDICARE, MEDICAID, SELFPAY ==
[2024-05-16] VITALS (7 sets, daily range): BP systolic 98–106; BP diastolic 69–75; PULSE 60–68; RESP 16–18; TEMP 36.8–37.2; O2SAT 98–100
--- NOTE | ~2024-05-16 | CT_ITS ---
EXAMINATION: CT thoracic lumbar wo con DATE: 05/16/2024 01:49 INDICATION: Fall TECHNIQUE: Computed tomography (CT) of the thoracic and lumbar was performed without intravenous cont rast. Automated exposure control and iterative reconstruction technique were employed. Exam dose: 10 54.52 mGy-cm total exam DLP. COMPARISON: None FINDINGS: The thoracic spine is normally aligned. No fracture or dislocation. No suspicious osteolyti c or osteoblastic lesions. No fracture or bone destruction of the lumbar spine. There is mild retrolisthesis at L2-3 and L4-5. L umbar and lumbosacral region is relatively preserved. Patulous esophagus with fluid. Severe coronary artery calcifications of the left main, left anterior descending and circumflex arter ies. Bilateral lower lobe infiltrates involving the dependent left lower lobe and both lung bases. There are 2 fusiform abdominal aortic dilatations, measuring up to 3 x 3.4 cm dimension. IMPRESSION: No thoracic or lumbar spine fracture Severe coronary artery calcifications, placing patient at high risk of significant cardiovascular dis ease Bilateral pulmonary infiltrates Reviewed, dictated and finalized at [facility]. Reviewed, dictated and finalized at [facility]. OSITION ROLL MAKER AND CUTTER IMPRESSION: No thoracic or lumbar spine fracture Severe coronary artery calcifications, placing patient at high risk of signific ant cardiovascular disease Bilateral pulmonary infiltrates
--- NOTE | ~2024-05-16 | CT_ITS ---
EXAMINATION: CT cervical spine wo con DATE: 05/16/2024 01:49 INDICATION: Fall TECHNIQUE: Computed tomography (CT) of the cervical spine was performed without intravenous contrast. Automated exposure control and iterative reconstruction technique were employed. Exam dose: 194.69 mGy-cm total exam DLP. COMPARISON: None FINDINGS: Normal alignment of the atlantoaxial joints. C1 and C2 are normally aligned and the odontoi d process is intact. There is severe degenerative disease and mild retrolisthesis at C4-5. Status post anterior surgical fusion at C5-C7. There is fusion at the right C3 and C4 facet joints and degenerative change of the remaining facet gil ints. Prominent uncovertebral joint spurring at C4-5, especially on the left. IMPRESSION: Cervical spondylosis amount of fracture or dislocation or locked facet Status post anterior cervical fusion at C5-7 Reviewed, dictated and finalized at [facility]. Reviewed, dictated and finalized at [facility]. KNITTER HELPER IMPRESSION: Cervical spondylosis amount of fracture or dislocation or locked f acet Status post anterior cervical fusion at C5-7
--- NOTE | ~2024-05-16 | CT_ITS ---
EXAMINATION: CT brain wo con DATE: 05/16/2024 01:49 INDICATION: Fall TECHNIQUE: Computed tomography (CT) of the head was performed without intravenous contrast. The mA wa s adjusted according to patient size. Iterative reconstruction technique was employed. Exam dose: 13 62.00 mGy-cm total exam DLP. COMPARISON: 02/28/2024 CT head FINDINGS: Stable chronic large right middle cerebral artery territory encephalomalacia consistent wit h old middle cerebral artery infarct. Prominent right basal ganglia lacunar infarct again noted in ad dition to chronic right thalamic lacunar infarct. No intracranial mass lesion or hemorrhage, midline shift or mass effect or recent cerebrovascular acc ident, midline shift or mass effect is noted. Bilateral carotid siphon internal carotid artery calcifications. No subdural or epidural hematoma. Again noted is right temporoparietal craniotomy with bone flaps secured by plates and screws. No fracture or bone destruction cranial vault. Left mastoid air cell effusions. IMPRESSION: Chronic large middle cerebral artery territory infarct, right basal ganglia and thalamic infarcts, unchanged since 02/28/2024 No acute intracranial finding recent skull fracture Reviewed, dictated and finalized at [facility]. Reviewed, dictated and finalized at [facility]. MATIC SEAMER IMPRESSION: Chronic large middle cerebral artery territory infarct, right basa l ganglia and thalamic infarcts, unchanged since 02/28/2024 No acute intracranial finding recent skull fracture
--- NOTE | 2024-05-16 00:46 | ED.FALL ---
HPI - Fall General Chief Complaint: Fall Stated Complaint: fall History of Present Illness HPI Narrative: 69-year-old male with history of dementia, CVA, dysphagia with G-tube in place presents to the ED via EMS from [facility] for a fall. Patient states he was reaching for his college when he slipped out of bed. States he did not hit his head or lose consciousness. The fall was unwitnessed by staff. He is reporting pain diffusely to his neck and back. Per EMS patient has chronic low back pain. He denies other injuries. He is anticoagulated on Xarelto. Per EMS patient is normally A&O times 2-3 baseline. He is currently A&O x4 Related Data Home Medications ?Medication ?Instructions ?Recorded ?Confirmed ?Last Taken ?Type Adults Multivitamin 1 tablet PO DAILY 06/12/23 06/12/23 Unknown History Mucinex 600 mg PO BID 06/12/23 06/12/23 Unknown History acetaminophen 500 mg PO QID PRN Pain 06/12/23 06/12/23 Unknown History aripiprazole 10 mg tablet 10 mg PO HS 06/12/23 06/12/23 Unknown History atorvastatin 80 mg tablet 80 mg PO HS 06/12/23 06/12/23 Unknown History buspirone 7.5 mg tablet 7.5 mg PO TID 06/12/23 06/12/23 Unknown History diclofenac sodium 1 % topical gel 1 ea topical BID PRN Pain 06/12/23 06/12/23 Unknown History (Voltaren Arthritis Pain) hydrocortisone 1 % topical cream 1 applic topical BID 06/12/23 06/12/23 Unknown History lorazepam 0.5 mg tablet 0.5 mg PO TID 06/12/23 06/12/23 Unknown History ondansetron HCl 4 mg tablet 4 mg PO Q8H PRN n/v 06/12/23 06/12/23 Unknown History rivaroxaban 20 mg tablet (Xarelto) 20 mg PO QPM 06/12/23 06/12/23 Unknown History simethicone 1 cap PO TID PRN gas 06/12/23 06/12/23 Unknown History triamcinolone acetonide 0.1 % 1 applic topical BID 06/12/23 06/12/23 Unknown History topical cream Allergies Allergy/AdvReac Type Severity Reaction Status Date / Time amoxicillin AdvReac Hives Verified 06/14/23 09:25 Review of Systems Review of Systems: All systems reviewed & are unremarkable except as noted in HPI and below PMFSH Past Medical History Medical History CVA (cerebral vascular accident) Social History Social History Smoking packs per day: 1 Smoking cigarettes per day: 20.0 Years smoked: 30 Smoking pack-years: 30.00 Smoking status: Former smoker Tobacco type: cigarettes Second hand tobacco smoke exposure: Yes Alcohol intake: former Substance use: never Substance use type: does not use Spiritual care concerns: No Exam Narrative: GENERAL: Well-appearing, well-nourished, and in no acute distress. HEAD: Normocephalic, atraumatic. EYES: PERRLA and EOMI. ENT: Nares clear, no rhinorrhea or epistaxis. Mucous membranes moist. NECK/BACK: Diffuse cervical, thoracic and lumbar spinous tenderness without crepitus step-offs or deformities. Stage 1 left sacral ulcer with a few small scattered areas of stage II sacral ulcer. No surrounding erythema or drainage, no crepitus or tenderness. CHEST: Clear to auscultation. No respiratory distress. HEART: Regular rate and rhythm. No murmur heard. Normal peripheral pulses. ABDOMEN: Soft, nontender, nondistended, normal active bowel sounds. G-tube in the left upper quadrant with surrounding malodorous soiled bandage labeled 1/7 . Skin surrounding g tube is unremarkable with no erythema, no drainage EXTREMITIES: Normal range of motion. No edema. No tenderness to upper lower extremities SKIN: Warm, dry, no rash. NEURO: No focal deficits. Alert and oriented x4 Course Vital Signs Vital signs: Vital Signs Temperature 98.3 F 05/16/24 00:41 Pulse Rate 66 05/16/24 00:41 Respiratory Rate 16 05/16/24 00:41 Blood Pressure 98/71 L 05/16/24 00:41 Pulse Oximetry 100 05/16/24 00:41 Oxygen Delivery Room Air 05/16/24 00:41 Temperature 98.3 F 05/16/24 00:41 Pulse Rate 68 05/16/24 01:20 Respiratory Rate 16 05/16/24 01:20 Blood Pressure 103/72 05/16/24 02:19 Pulse Oximetry 98 05/16/24 01:20 Oxygen Delivery Room Air 05/16/24 00:41 MDM - Fall MDM Narrative Medical decision making narrative: 69-year-old male presents to the ED via EMS from [facility] for a fall that occurred prior to arrival. Patient able to provide history and states he was reaching for his college when he slipped out of bed. He denies hitting his head or losing consciousness, however the fall was unwitnessed. He is reporting pain diffusely to his neck and back, per EMS the patient does have chronic back pain. Patient is normally A&O times 2-3, however upon questioning today he is A&O x4. CT brain shows no acute intracranial process. CT thoracic and lumbar spine shows no acute osseous traumatic injury or significant acute traumatic abnormal alignment involving the thoracic or lumbar spine. CT of cervical spine shows no acute traumatic abnormality identified. Patient updated on workup. G-tube dressing was changed, no findings concerning for cellulitis or secondary infection. Will discharge back to long term facility. Return precautions provided. Discharge Plan Discharge Clinical Impression: Fall, Lumbar contusion Patient Disposition: NH [facility]/Asst Living Condition: Stable Instructions: Antibiotic Form Additional Instructions: Follow-up your primary care provider. Return to the emergency department if you develop any new or worsening symptoms. Patient Language: Vietnamese Prescriptions: No Action lidocaine 5 % Adhesive Patch,Medicated 1 patch TOPICAL DAILY Qty: 30 0RF Rx Instructions: leave on most painful area for up to 12 hrs atorvastatin 80 mg tablet 80 mg PO HS buspirone 7.5 mg tablet 7.5 mg PO TID aripiprazole 10 mg tablet 10 mg PO HS Adults Multivitamin 1 tablet PO DAILY ondansetron HCl 4 mg Tablet 4 mg PO Q8H PRN (Reason: n/v) triamcinolone acetonide 0.1 % Cream 1 applic TOPICAL BID Rx Instructions: to chest lorazepam 0.5 mg Tablet 0.5 mg PO TID hydrocortisone 1 % Cream 1 applic TOPICAL BID Rx Instructions: left shoulder and left chest wall diclofenac sodium [Voltaren Arthritis Pain] 1 % Gel 1 ea TOPICAL BID PRN (Reason: Pain) Rx Instructions: joints Xarelto 20 mg Tablet 20 mg PO QPM Rx Instructions: must administer with evening meal Mucinex 600 mg PO BID acetaminophen 500 mg PO QID PRN (Reason: Pain) simethicone 1 cap PO TID PRN (Reason: gas) aripiprazole [Abilify] 10 mg Tablet 10 mg feeding tube HS Qty: 1 0RF docusate sodium 50 mg/5 mL Liquid 100 mg feeding tube BID Qty: 1000 0RF atorvastatin 40 mg Tablet 80 mg feeding tube HS Qty: 1 0RF buspirone 5 mg Tablet 5 mg feeding tube TID Qty: 1 0RF gabapentin [Neurontin] 300 mg Capsule 300 mg feeding tube TID Qty: 1 0RF lamotrigine [Lamictal] 100 mg Tablet 100 mg feeding tube DAILY Qty: 1 0RF lansoprazole 30 mg Tablet,Disintegrat, Delay Rel 30 mg feeding tube QAM Qty: 1 0RF loperamide 2 mg Capsule 2 mg feeding tube Q4H PRN (Reason: diarhea) Qty: 1 0RF levetiracetam 100 mg/mL Solution 500 mg feeding tube Q12HR Qty: 200 0RF multivitamin with folic acid [Thera] 400 mcg Tablet 1 tablet feeding tube QAM Qty: 1 0RF polyethylene glycol 3350 [Miralax] 17 gram Powder In Packet 17 g feeding tube QAM Qty: 17 0RF oxycodone 5 mg Tablet 5 mg feeding tube Q6H PRN (Reason: Pain Rated 6 Or Greater) Qty: 1 0RF sennosides [Senokot] 8.6 mg Tablet 8.6 mg feeding tube BID PRN (Reason: Constipation) Qty: 1 0RF acetaminophen [Nortemp] 160 mg/5 mL Suspension 650 mg feeding tube Q4H PRN (Reason: Mild Pain (1-3) Or Fever) Qty: 30 0RF trazodone 50 mg Tablet 50 mg feeding tube HS Qty: 1 0RF sertraline [Zoloft] 50 mg Tablet 25 mg feeding tube QAM Qty: 1 0RF azithromycin [Zithromax] 250 mg Tablet 500 mg PO DAILY Qty: 4 0RF guaifenesin 100 mg/5 mL Liquid 200 mg feeding tube Q4HR Qty: 1000 0RF cefdinir 250 mg/5 mL Suspension For Reconstitution 300 mg feeding tube Q12HR Qty: 12 0RF metoprolol tartrate 25 mg tablet 12.5 mg feeding tube BID Qty: 1 0RF olanzapine [Zyprexa Zydis] 5 mg Tablet,Disintegrating 5 mg Not Applicable PRN PRN (Reason: Agitation) Qty: 1 0RF doxazosin 4 mg tablet 4 mg feeding tube HS Qty: 1 0RF Follow-up/Referrals: UNKNOWN,DOCTOR [Primary Care Provider] -
[2024-05-16] MEDS: MORPHINE SULFATE INJ (*CRX) 10 MG/ML AMP 4 MG IM (01:21)
--- NOTE | 2024-05-16 05:22 | PC.NURSE ---
pt report was given to Natalia at [facility] about patient discharge instructions.
[2024-05-16] MEDS: LORazepam (*CRX) 0.5 MG TABLET PO (11:23)
== END 2024-05-16 12:13 ==
PROVIDERS: Emergency Provider Physician Assistant
DX: S30.0XXA Contusion of lower back and pelvis, initial encounter (principal); W06.XXXA Fall from bed, initial encounter
CPT/HCPCS: 70450; 72125; 72128; 72131; 96372; 99284; A9270; J2270

== ENCOUNTER 2024-06-23 15:19 | Emergency (ER) | payer MEDICARE, MEDICAID, SELFPAY ==
--- NOTE | ~2024-06-23 | CT_ITS ---
EXAMINATION: CT brain wo con, CT facial bones wo con DATE: 06/23/2024 16:31 INDICATION: Head injury TECHNIQUE: 1. Computed tomography (CT) of the head was performed without intravenous contrast. Sagittal and sin nal reconstructions were performed. The mA was adjusted according to patient size. Iterative reconstr uction technique was employed. The dose-length product was 908.00 mGy-cm. 2. CT of the maxillofacial bones was performed without intravenous contrast. Sagittal and coronal rec onstructions were performed. Automated exposure control and iterative reconstruction technique were e mployed. The dose length product was 325.27 mGy-cm. COMPARISON: head CT dated 05/16/2024 FINDINGS: Head CT: Again seen is a large region of encephalomalacia consistent with chronic infarct in the right middle cerebral artery vascular distribution of the right frontal, temporal and parietal lobes as well as th e insula and portions of the right basal ganglia. There are a couple additional small old lacunar inf arcts at the right lentiform nucleus and right thalamus. There is an overlying right frontotemporopar ietal craniotomy with plate and screw fixations. No acute fracture. No acute intracranial hemorrhage, acute infarction or abnormal extra axial fluid collection. There is ex vacuo dilation of the right l ateral ventricle. Remaining ventricles are normal. No mass/mass effect. Chronic small right and moder ate sized left mastoid effusions. Facial bone CT: No maxillofacial fractures. Specifically the nasal bones, mandible, zygomatic arches and [place] of the orbits and paranasal sinuses are all intact. Nasal septum is midline with no fracture. Changes of bi lateral intraocular lens replacement. Mild mucosal thickening the left ethmoid sinus. Periodontal dis ease. Likely dental caries at the left maxillary canine and central and lateral incisors. IMPRESSION: 1. No maxillofacial or calvarial fracture or acute intracranial process. 2. Large region of encephalomalacia in the right middle cerebral artery vascular distribution consist ent with chronic infarct with overlying right frontotemporoparietal craniotomy. 3. A couple additional small old lacunar infarcts at the right thalamus and right lentiform nucleus. Reviewed, dictated and finalized at location A. ASSEMBLER IMPRESSION: 1. No maxillofacial or calvarial fracture or acute intracranial process. 2. Large region of encephalomalacia in the right middle cerebral artery vascula r distribution consistent with chronic infarct with overlying right frontotempo roparietal craniotomy. 3. A couple additional small old lacunar infarcts at the right thalamus and rig ht lentiform nucleus.
--- NOTE | ~2024-06-23 | XR_ITS ---
EXAM: XR shoulder LT min 2V DATE: 06/23/2024 16:49 HISTORY: trauma . COMPARISON: X-ray chest 06/11/2023. FINDINGS: Decreased mineralization. No fracture or dislocation. No lytic or blastic lesion. Mild deg enerative change at the glenohumeral joint. No erosion or periosteal change. Soft tissues within norm al limits. Coronary stent. Left chest pacer. ACDF hardware. IMPRESSION: No acute osseous finding in the left shoulder. Reviewed, dictated and finalized at location K. ERSION WORKER
--- NOTE | ~2024-06-23 | XR_ITS ---
EXAMINATION: XR hip LT 2V w AP pelvis DATE: 06/23/2024 16:49 INDICATION: Left hip injury. TECHNIQUE: An anteroposterior view of the pelvis and 2 views of left hip were obtained. COMPARISON: None. FINDINGS: Alignment is normal. No fracture. There is mild lumbar spondylosis. There is mild osteoarth ritis of the hips. There is a large volume of stool in the colon. Stool distends the rectum. IMPRESSION: 1. Mild osteoarthritis of the hips. 2. Stool distends the rectum. Reviewed, dictated and finalized at location A. 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
[2024-06-23 15:34] VITALS: TEMP 37.1
--- OUTSIDE RECORDS SUMMARY | 2024-06-23 15:40 | XMS_ITS | Clinical Summary ---
Author Organization [facility] Address [address] [place] [address] Phone Care Team Providers Care Milk Route Supervisor Name Role Phone Unavailable Primary Care Provider Unavailabl e Allergies Active Allergy Reactions Criticality Noted Date Comments Amoxicillin Rash,Hives,Unknown High 06/17/2002 Niacin Other (See Comments) 09/15/2007 Simvastatin Other (See Comments) 09/15/2007 Medications atorvastatin (LIPITOR) 80 mg tablet Take 1 Tablet (80 mg) by mouth daily at bedtime. 30 Tablet 08/09/2020 Active balsam radha-castor oiL (VENELEX) OintmentIndicat ions:Apply to wound area on Coccyx. Cover with mepilex. Apply to affected area 2 times daily. 60 Gram 3 08/09/2020 Active DULoxetine (CYMBALTA) 60 mg Capsule, Delayed Release(E.C.) Take 1 Capsule (60 mg) by mouth daily. 30 Capsule 1 08/09/2020 Active folic acid (FOLVITE) 1 mg tablet Take 1 Tablet (1 mg) by mouth daily. 30 Tablet 08/09/2020 Active gabapentin (NEURONTIN) 100 mg capsule Take 2 Capsules (200 mg) by mouth every 12 hours. 120 Capsule 08/09/2020 Active lisinopriL (PRINIVIL) 2.5 mg tablet Take 1 Tablet (2.5 mg) by mouth daily. 30 Tablet 1 08/09/2020 Active mirtazapine (REMERON) 15 mg tablet Take 1 Tablet (15 mg) by mouth daily at bedtime. 30 Tablet 1 08/09/2020 Active pantoprazole (PROTONIX) 40 mg Tablet, Delayed Release (E.C.) Take 1 Tablet (40 mg) by mouth daily before breakfast. 30 Tablet 08/10/2020 Active polyethylene glycol (MIRALAX) 17 gram Powder in Packet Take 1 Packet (17 Grams) by mouth daily. 30 Each 08/09/2020 Active rivaroxaban (XARELTO) 20 mg Tablet Take 1 Tablet (20 mg) by mouth daily with supper. 30 Tablet 08/09/2020 Active tamsulosin (FLOMAX) 0.4 mg capsule Take 1 Capsule (0.4 mg) by mouth daily after supper. 30 Capsule 08/09/2020 Active traZODone (DESYREL) 100 mg tablet Take 1 Tablet (100 mg) by mouth daily at bedtime. 30 Tablet 08/09/2020 Active Active Problems Problem Noted Date Diagnosed Date Hyperlipidemia, unspecified 07/14/2020 Atherosclerosis of [place] ronary artery of [place] heart without angina pectoris 07/14/2020 Low back pain 07/14/[address] elevation myocardia l infarction (STEMI) due to occlusion of left coronary artery 07/14/2020 Cardiac pacemaker in situ 07/14/2020 History of heart failure 07/14/2020 Hypertension 07/14/2020 Dysphagia 07/03/2020 Overview (07/14/2020): Last Assessment & Plan: Speech therapy evaluation pending. Currently NPO. Receiving maintenance saline. Hospital-acquired pneumonia 07/03/2020 Overview (07/14/2020): Last Assessment & Plan: Oxygenation stable on room air. WBC improved. Afebrile. Blood cultures NGTD. Sputum cultures contaminated. Continue vancomycin and cefepime. Check vancomycin trough before 4th dose. Can de-escalate antibiotic regimen post-op if stable. Moderate malnutrition 07/03/2020 Left hemiplegia 06/20/2020 Acute ischemic stroke 05/07/2020 Overview (07/14/2020): Added automatically from request for surgery [id number] Social History Tobacco Use Types Packs/Day Years Used Date Smoking Tobacco: Former Cigarettes 1 25 0 01/04/1981 - 01/04/2006 Smokeless Tobacco: Never Tobacco Cessation:Counseling Given: No Sex and Gender Information Value Date Recorded Sex Assigned at Not on file Legal Sex Male 10:35 AM COUNTERINTELLIGENCE/HUMINT SPECIALIST Gender Identity Not on file Sexual Orientation Not on file Last Filed Vital Signs Vital Sign Reading Time Taken Comments Blood Pressure 115/75 08/15/2020 8:55 AM CDT Pulse 95 08/15/2020 8:55 AM CDT Temperature 37.1 C (98.7 F) 08/14/2020 8:00 PM CDT Respiratory Rate 18 08/14/2020 8:00 PM CDT Oxygen Saturation 95% 08/15/2020 8:55 AM CDT Inhaled Oxygen Concentration - - Weight 54.4 kg (120 lb) 08/07/2020 11:00 AM CDT Height 180.3 cm (5' 11 ) 07/14/2020 4:49 PM COUNTERINTELLIGENCE/HUMINT SPECIALIST Body Mass Index 16.74 07/14/2020 4:49 PM COUNTERINTELLIGENCE/HUMINT SPECIALIST Plan of Treatment Health Maintenance Due Date Last Done Comments DTAP/TDAP/TD VACCINES (1 - Tdap) 1972 COLORECTAL SCREENING 1998 Colorectal Cancer Screening 1998 FIT-DNA Q 3 years 1998 FIT/FOBT Q 1 year 1998 Flex Sig/CT Colonography Q 5 years 1998 ZOSTER VACCINE (1 of 2) 2003 RSV VACCINE (60+ or ) (1 - Risk 60-74 years 1-dose series) 2013 INFLUENZA VACCINE (#1) 2023 02/13/2018, 2015 PNEUMOCOCCAL VACCINE 65+ YEARS Completed 07/24/2018 , 07/12/2016 Insurance [facility] Advance Directives For more information, please contact: [phone] * Full Code (Latest Code Status on File) Date Activated Date Inactivated Comments 07/14/2020 5:24 PM 08/15/2020 2:47 PM
--- OUTSIDE RECORDS SUMMARY | 2024-06-23 15:40 | XMS_ITS | Clinical Summary ---
Author Organization [facility] Address [facility] [place] [address] Care Team Providers Care Inspector Printed Circuit Boards Name Role Phone Arminda Trejo MD, Bill Puentes Primary Care Provider Allergies Active Allergy Reactions Criticality Noted Date Comments Amoxicillin Unknown 06/14/2020 Medications acetaminophen 325 MG tablet Take 650 mg by mouth every 6 (six) hours as needed (mild pain). Max 3000mg in 24 hours Active aspirin 81 MG chewable tablet Chew 81 mg by mouth daily. Active atorvastatin 80 MG tablet Take 80 mg by mouth nightly at bedtime. Active diclofenac sodium 1 % gel Apply topically every 6 (six) hours as needed (back, shoulder pain). Active docusate sodium [address] 283 mg rectally nightly as needed for Constipation. Active DULoxetine 60 MG capsule Take 60 mg by mouth daily. Active Fluticasone Furoate 100 MCG/ACT AEROSOL POWDER, BREATH ACTIVATED Inhale 1 puff into the lungs daily. Active fluticasone propionate 50 MCG/ACT nasal spray 2 sprays by Each Nostril route daily. Active polyethylene glycol packet Take 17 g by mouth daily. Dissolve powder in 240 mL water Active lidocaine (LIDODERM) 5 % Place 1 patch onto the skin daily. Remove & Discard patch within 12 hours or as directed by MD Cesar to lower back Active lisinopril 2.5 MG tablet Take 2.5 mg by mouth daily. Active loratadine 10 MG tablet Take 10 mg by mouth daily. Active mirtazapine 15 MG tablet Take 15 mg by mouth nightly at bedtime. Active pantoprazole EC 40 MG tablet Take 40 mg by mouth daily. Active ramelteon 8 MG tablet Take 8 mg by mouth nightly at bedtime. Active senna-docusate 8.6-50 MG tablet Take 1 tablet by mouth 2 (two) times a day. Active tamsulosin 0.4 MG Cap Take 0.4 mg by mouth nightly. Active tiZANidine 4 MG tablet Take 4 mg by mouth nightly. For muscle spasms Active traZODone 100 MG tablet Take 100 mg by mouth nightly at bedtime. For insomnia related to major depressive disorder Active folic acid 1 MG tablet Take 1 tablet (1 mg total) by mouth daily. 30 tablet 1 Active HYDROcodone-yelitza taminophen 7.5-325 MG tabletIndicatio ns:Acute Pain < 7 Day Supply Take 1 tablet by mouth every 6 (six) hours as needed for Pain. Indications: Acute Pain < 7 Day Supply 15 tablet 1 Active Active Problems Problem Noted Date Diagnosed Date Pneumonia involving left lung 06/20/2020 Left hemiplegia ([facility]) 06/20/2020 Right pontine CVA ([facility]) 06/20/2020 Social History Tobacco Use Types Packs/Day Years Used Date Smoking Tobacco: Former Smokeless Tobacco: Never Alcohol Use Standard Drinks/Week Comments Never 0 (1 standard drink = 0.6 oz pur e alcohol) AUDIT-C Answer Date Recorded Q1: How often do you have a drink containing alc ohol? Never 06/14/2020 Average Number of Drinks Not on file 021 Frequency of Binge Drinking Not on file 01/2021 Sex and Gender Information Value Date Recorded Sex Assigned at Not on file Legal Sex Male 7:56 PM CDT Gender Identity Not on file Sexual Orientation Not on file Last Filed Vital Signs Vital Sign Reading Time Taken Comments Blood Pressure 118/56 06/29/2020 7:10 AM BRIM ROUNDER Pulse 79 06/29/2020 7:10 AM BRIM ROUNDER Temperature 37 C (98.6 F) 06/29/2020 7:10 AM BRIM ROUNDER Respiratory Rate 18 06/29/2020 7:10 AM BRIM ROUNDER Oxygen Saturation 94% 06/29/2020 7:10 AM BRIM ROUNDER Inhaled Oxygen Concentration - - Weight 88.6 kg (195 lb 4.8 oz) 06/29/2020 7:10 A M BRIM ROUNDER Height 177.8 cm (5' 10 ) 06/20/2020 3:00 PM BRIM ROUNDER Body Mass Index 28.02 06/20/2020 3:00 PM BRIM ROUNDER Plan of Treatment Health Maintenance Due Date Last Done Comments Colorectal Cancer Screening Colonoscopy (10 Years) 1953 Hepatitis C 1971 DTaP, Tdap and Td Vaccines ( 1 - Tdap) 1972 Zoster Vaccines (1 of 2) 2003 RSV Immunization or 60+ Years (1 - Risk 60-74 years 1-dose series) 2013 Pneumococcal Vaccine: 65+ Ye ars (1 of 1 - PCV) 2018 COVID-19 Vaccine (1 - 2023-2 5 season) 2024 Influenza Adult (#1) 2024 02/04/2020 Colorectal Cancer Screening FIT/FOBT (1 Year) Discontinued 06/22/2020 Meningococcal B Vaccine Aged Out No l onger eligible based on patient's age to complete this topic Meningococcal Vaccine Aged Out No lawrence nicole eligible based on patient's age to complete this topic RSV Immunizations Under 20 Months Aged Out No longer eligible based on patient's age to complete this topic Goals Goal Patient Goal Type Associated Problems Recent Progress Patient-Stated? Author Safety - demonstrates understanding of CARE HOME SAFETY MEASURES General No Jina Ortiz poultry trimmer Procedure Name Priority Date/Time Associated Diagnosis Comments OCCULT BLOOD, FECES Routine 06/22/2020 2 :10 PM BRIM ROUNDER from Last 3 Months or Most Recently Relevant to Health Maintenance Results * OCCULT BLOOD, FECES (06/22/2020 2:10 PM BRIM ROUNDER) OCCULT BLOOD FECAL NEGATIVE NEGATIVE 06/22/2020 3:11 PM BRIM ROUNDER [facility] STOOL SPECIMEN / Unknown 06/22/2020 2:10 PM BRIM ROUNDER us Charlotte Flores MANAGER CONTRACTING BODY FLUIDS AND STOOLS ORDERAB LES Final Result [facility] [address] [place] [address], [place] [phone] from Last 3 Months or Most Recently Relevant to Health Maintenance Insurance MEDICARE PART A Advance Directives * Full Code (Latest Code Status on File) Date Activated Date Inactivated Comments 06/20/2020 3:49 PM 06/26/2020 12:30 PM Care Teams Inspector Printed Circuit Boards Relationship Specialty Start [place] [id number] [address] PCP - General ANESTHESIOLOGY 06/14/20
--- NOTE | 2024-06-23 16:02 | ED_ITS ---
HPI - General Adult General Chief complaint: Fall Stated complaint: fall, L eyebrow lac Time Seen by Provider: 06/23/24 15:29 History of Present Illness HPI narrative: 69-year-old male presents emergency department for evaluation for having a fall from bed. Patient does have a small laceration to left eyebrow. Patient does complain worsening left chronic shoulder and right hip pain. Related Data Home Medications ?Medication ?Instructions ?Recorded ?Confirmed ?Last Taken ?Type Adults Multivitamin 1 tablet PO DAILY 06/12/23 06/12/23 Unknown History Mucinex 600 mg PO BID 06/12/23 06/12/23 Unknown History acetaminophen 500 mg PO QID PRN Pain 06/12/23 06/12/23 Unknown History aripiprazole 10 mg tablet 10 mg PO HS 06/12/23 06/12/23 Unknown History atorvastatin 80 mg tablet 80 mg PO HS 06/12/23 06/12/23 Unknown History buspirone 7.5 mg tablet 7.5 mg PO TID 06/12/23 06/12/23 Unknown History diclofenac sodium 1 % topical gel 1 ea topical BID PRN Pain 06/12/23 06/12/23 Unknown History (Voltaren Arthritis Pain) hydrocortisone 1 % topical cream 1 applic topical BID 06/12/23 06/12/23 Unknown History lorazepam 0.5 mg tablet 0.5 mg PO TID 06/12/23 06/12/23 Unknown History ondansetron HCl 4 mg tablet 4 mg PO Q8H PRN n/v 06/12/23 06/12/23 Unknown History rivaroxaban 20 mg tablet (Xarelto) 20 mg PO QPM 06/12/23 06/12/23 Unknown History simethicone 1 cap PO TID PRN gas 06/12/23 06/12/23 Unknown History triamcinolone acetonide 0.1 % 1 applic topical BID 06/12/23 06/12/23 Unknown History topical cream Allergies Allergy/AdvReac Type Severity Reaction Status Date / Time amoxicillin AdvReac Hives Verified 06/14/23 09:25 Review of Systems Review of Systems: All systems reviewed & are unremarkable except as noted in HPI and below PMFSH Past Medical History Medical History CVA (cerebral vascular accident) Social History Social History Smoking packs per day: 1 Smoking cigarettes per day: 20.0 Years smoked: 30 Smoking pack-years: 30.00 Smoking status: Former smoker Tobacco type: cigarettes Second hand tobacco smoke exposure: Yes Alcohol intake: former Substance use: never Substance use type: does not use Spiritual care concerns: No Course Vital Signs Vital signs: Vital Signs Temperature 98.7 F 06/23/24 15:34 Temperature 98.4 F 06/23/24 19:16 Pulse Rate 66 06/23/24 19:16 Respiratory Rate 18 06/23/24 19:16 Blood Pressure 137/74 06/23/24 19:16 Pulse Oximetry 98 06/23/24 19:16 Medical Decision Making MDM Narrative Medical decision making narrative: 69-year-old male presents emergency department for evaluation for head injury, acute on chronic left shoulder left hip pain. Imaging was negative for acute fracture dislocation and negative for intracranial injury. Laceration was Steri-Stripped by nursing staff. Patient was updated the results of his workup patient was comfortable the plan for discharge back to his care facility. Differential Diagnosis Differential Diagnosis: Left shoulder fracture, left hip fracture, symptoms have become subarachnoid hemorrhage, facial fracture Vital Signs Vital Signs: Vital Signs Temperature 98.7 F 06/23/24 15:34 Temperature 98.4 F 06/23/24 19:16 Pulse Rate 66 06/23/24 19:16 Respiratory Rate 18 06/23/24 19:16 Blood Pressure 137/74 06/23/24 19:16 Pulse Oximetry 98 06/23/24 19:16 Imaging Data Radiologist's impression: Impressions Face CT 06/23/24 16:37 IMPRESSION: 1. No maxillofacial or calvarial fracture or acute intracranial process. 2. Large region of encephalomalacia in the right middle cerebral artery vascular distribution consistent with chronic infarct with overlying right frontotemporoparietal craniotomy. 3. A couple additional small old lacunar infarcts at the right thalamus and right lentiform nucleus. Head CT 06/23/24 16:37 IMPRESSION: 1. No maxillofacial or calvarial fracture or acute intracranial process. 2. Large region of encephalomalacia in the right middle cerebral artery vascular distribution consistent with chronic infarct with overlying right frontotemporoparietal craniotomy. 3. A couple additional small old lacunar infarcts at the right thalamus and right lentiform nucleus. Shoulder X-Ray 06/23/24 16:50 IMPRESSION: No acute osseous finding in the left shoulder. Hip/Pelvis X-Ray 06/23/24 16:52 IMPRESSION: 1. Mild osteoarthritis of the hips. 2. Stool distends the rectum. Discharge Plan Discharge Clinical Impression: Head injury, Chronic left shoulder pain, Chronic left hip pain, Facial laceration Patient Disposition: NH Skilled Nursing/Asst Living Condition: Stable Instructions: Antibiotic Form, Head Injury (ED), Steristrips (ED) Additional Instructions: Laceration care as directed. Have close follow-up with your primary care physician. Patient Language: [place] Prescriptions: No Action lidocaine 5 % Adhesive Patch,Medicated 1 patch TOPICAL DAILY Qty: 30 0RF Rx Instructions: leave on most painful area for up to 12 hrs atorvastatin 80 mg tablet 80 mg PO HS buspirone 7.5 mg tablet 7.5 mg PO TID aripiprazole 10 mg tablet 10 mg PO HS Adults Multivitamin 1 tablet PO DAILY ondansetron HCl 4 mg Tablet 4 mg PO Q8H PRN (Reason: n/v) triamcinolone acetonide 0.1 % Cream 1 applic TOPICAL BID Rx Instructions: to chest lorazepam 0.5 mg Tablet 0.5 mg PO TID hydrocortisone 1 % Cream 1 applic TOPICAL BID Rx Instructions: left shoulder and left chest wall diclofenac sodium [Voltaren Arthritis Pain] 1 % Gel 1 ea TOPICAL BID PRN (Reason: Pain) Rx Instructions: joints Xarelto 20 mg Tablet 20 mg PO QPM Rx Instructions: must administer with evening meal Mucinex 600 mg PO BID acetaminophen 500 mg PO QID PRN (Reason: Pain) simethicone 1 cap PO TID PRN (Reason: gas) aripiprazole [Abilify] 10 mg Tablet 10 mg feeding tube HS Qty: 1 0RF docusate sodium 50 mg/5 mL Liquid 100 mg feeding tube BID Qty: 1000 0RF atorvastatin 40 mg Tablet 80 mg feeding tube HS Qty: 1 0RF buspirone 5 mg Tablet 5 mg feeding tube TID Qty: 1 0RF gabapentin [Neurontin] 300 mg Capsule 300 mg feeding tube TID Qty: 1 0RF lamotrigine [Lamictal] 100 mg Tablet 100 mg feeding tube DAILY Qty: 1 0RF lansoprazole 30 mg Tablet,Disintegrat, Delay Rel 30 mg feeding tube QAM Qty: 1 0RF loperamide 2 mg Capsule 2 mg feeding tube Q4H PRN (Reason: diarhea) Qty: 1 0RF levetiracetam 100 mg/mL Solution 500 mg feeding tube Q12HR Qty: 200 0RF multivitamin with folic acid [Thera] 400 mcg Tablet 1 tablet feeding tube QAM Qty: 1 0RF polyethylene glycol 3350 [Miralax] 17 gram Powder In Packet 17 g feeding tube QAM Qty: 17 0RF oxycodone 5 mg Tablet 5 mg feeding tube Q6H PRN (Reason: Pain Rated 6 Or Greater) Qty: 1 0RF sennosides [Senokot] 8.6 mg Tablet 8.6 mg feeding tube BID PRN (Reason: Constipation) Qty: 1 0RF acetaminophen [Nortemp] 160 mg/5 mL Suspension 650 mg feeding tube Q4H PRN (Reason: Mild Pain (1-3) Or Fever) Qty: 30 0RF trazodone 50 mg Tablet 50 mg feeding tube HS Qty: 1 0RF sertraline [Zoloft] 50 mg Tablet 25 mg feeding tube QAM Qty: 1 0RF azithromycin [Zithromax] 250 mg Tablet 500 mg PO DAILY Qty: 4 0RF guaifenesin 100 mg/5 mL Liquid 200 mg feeding tube Q4HR Qty: 1000 0RF cefdinir 250 mg/5 mL Suspension For Reconstitution 300 mg feeding tube Q12HR Qty: 12 0RF metoprolol tartrate 25 mg tablet 12.5 mg feeding tube BID Qty: 1 0RF olanzapine [Zyprexa Zydis] 5 mg Tablet,Disintegrating 5 mg Not Applicable PRN PRN (Reason: Agitation) Qty: 1 0RF doxazosin 4 mg tablet 4 mg feeding tube HS Qty: 1 0RF Follow-up/Referrals: UNKNOWN,DOCTOR [Primary Care Provider] -
[2024-06-23] MEDS: Acetaminophen/HYDROcodone ELIXIR (*CRX) 7.5 MG/15 ML UDC PO (17:47)
[2024-06-23 19:16] VITALS: BP 137/74; PULSE 66; RESP 18; TEMP 36.9; O2SAT 98
== END 2024-06-23 16:40 ==
PROVIDERS: Emergency Provider Emergency Medicine
DX: S01.112A Laceration without foreign body of left eyelid and periocular area, initial encounter (principal); M25.512 Pain in left shoulder; M25.552 Pain in left hip; W06.XXXA Fall from bed, initial encounter
CPT/HCPCS: 70450; 70486; 73030; 73502; 99284; A9270